=== PATIENT | male | born 1965 | race Caucasian/White ===

== ENCOUNTER 2016-10-07 11:42 | Inpatient (IN) | payer MEDICARE, OTHER ==
[~2016-10-07] VITALS: Ht 172.7 cm; Wt 94.8 kg
[~2016-10-07 11:42] MED LIST: ALBU2.5I INH; AMLO5TAB22 PO; CARV12.5 PO; CORE25TA PO; DOXY100T PO; FLUT1INH; OMPR20CCR PO; OXYC1SOL5 PO; PRED20 PO; ZOLP10TA3 PO
[2016-10-07 11:43] VITALS: BP 137/92; PULSE 78; RESP 12; TEMP 98.2; O2SAT 97
--- NOTE | 2016-10-07 12:03 | PD ---
HPI Chief Complaint: Psychiatric Symptoms Time Seen by Provider: 12:03 Travel History International Travel<30 days: No Contact w/Intl Traveler<30days: No Traveled to known affect area: No History of Present Illness HPI A 51-year-old male with history of depression, hypertension, COPD, who is legally blind, currently not taking his medication presents to the emergency department voluntarily for psychiatric evaluation. Patient contacted police after 3 stronger urges to jump in front of traffic. Patient states he has been feeling very depressed and suicidal lately. He reports cocaine and cannabinoid use. He has no other symptoms to report time. PFSH Past Medical History Hx Anticoagulant Therapy: No Anxiety: No Depression: Yes Heart Rhythm Problems: No Cancer: No Cardiovascular Problems: Yes (HTN) High Cholesterol: No Chemotherapy: No Chest Pain: No Congestive Heart Failure: No COPD: Yes Cerebrovascular Accident: No Diabetes: No Genitourinary: No Hypertension: Yes Musculoskeletal: No Neurologic: No Psychiatric: Yes Reproductive: No Respiratory: No (COPD) Sleep Apnea: Yes Past Surgical History Abdominal Surgery: No Cardiac Surgery: No Ear Surgery: No Endocrine Surgery: No Eye Surgery: No Genitourinary Surgery: No Gynecologic Surgery: No Oral Surgery: No Thoracic Surgery: No Social History Alcohol Use: Yes Tobacco Use: Yes Substance Use: Yes (cocaine) Allergies-Medications Reported Meds & Prescriptions Reported Meds & Active Scripts Active Resp: Albuterol 2.5 Mg/3 Ml Neb (Albuterol Sulfate) 2.5 Mg/3 Ml Nebu 2.5 Mg INH Q4H PRN Deltasone 20 Mg Tab (Prednisone) 20 Mg Tab 20 Mg PO Q12HR 5 Days Doxycycline Hyclate 100 mg (Doxycycline Hyclate) 100 Mg Tab 100 Mg PO BID 7 Days Oxycodone/Acetaminophen 10 mg/325 mg 1 Tab Tab 1-2 Tab PO Q4H PRN Reported Coreg 25 mg (Carvedilol) 25 Mg Tab 1 Tab PO HS Prilosec 20 Mg Cap (Omeprazole) 20 Mg Capcr 20 Mg PO DAILY Coreg 12.5 mg (Carvedilol) 12.5 Mg Tab 1 Tab PO DAILY Amlodipine Besylate 5 mg (Amlodipine Besylate) 5 Mg Tab 5 Mg PO HS Breo Ellipta 100-25 Mcg/INH (Fluticasone Furoate-Vilanterol) 1 Inh Inh Ambien 10 Mg Tab (Zolpidem Tartrate) 10 Mg Tab 10 Mg PO HS Review of Systems Except as stated in HPI: all other systems reviewed are Neg Physical Exam Narrative GENERAL: Well-nourished male patient, in no acute distress SKIN: Warm and dry. HEAD: Atraumatic. Normocephalic. EYES: Pupils equal and round. No scleral icterus. No injection or drainage. ENT: No nasal bleeding or discharge. Mucous membranes pink and moist. NECK: Trachea midline. No JVD. CARDIOVASCULAR: Regular rate and rhythm. No murmur appreciated. RESPIRATORY: No accessory muscle use. Clear to auscultation. Breath sounds equal bilaterally. GASTROINTESTINAL: Abdomen soft, non-tender, nondistended. Hepatic and splenic margins not palpable. MUSCULOSKELETAL: No obvious deformities. No clubbing. No cyanosis. No edema. NEUROLOGICAL: Awake and alert. No obvious cranial nerve deficits. Motor grossly within normal limits. Normal speech. PSYCHIATRIC: Appropriate mood and affect; insight and judgment normal. Data Data Last Documented VS Vital Signs Date Time Temp Pulse Resp B/P Pulse Ox O2 Delivery O2 Flow Rate FiO2 10/07/16 11:43 98.2 78 12 137/92 97 Room Air Orders Complete Blood Count With Diff (10/07/16 11:58) Basic Metabolic Panel (Bmp) (10/07/16 11:58) Drug Screen, Random Urine (10/07/16 11:58) Alcohol (Ethanol) (10/07/16 11:58) Psych Screen (10/07/16 11:58) Diet Regular Basic (10/07/16 Lunch) Labs Laboratory Tests Test 10/07/16 12:00 White Blood Count 9.9 TH/MM3 Red Blood Count 4.94 MIL/MM3 Hemoglobin 14.8 GM/DL Hematocrit 42.3 % Mean Corpuscular Volume 85.8 FL Mean Corpuscular Hemoglobin 30.1 PG Mean Corpuscular Hemoglobin 35.0 % Concent Red Cell Distribution Width 13.0 % Platelet Count 279 TH/MM3 Mean Platelet Volume 7.2 FL Neutrophils (%) (Auto) 60.2 % Lymphocytes (%) (Auto) 23.6 % Monocytes (%) (Auto) 5.6 % Eosinophils (%) (Auto) 9.8 % Basophils (%) (Auto) 0.8 % Neutrophils # (Auto) 6.0 TH/MM3 Lymphocytes # (Auto) 2.3 TH/MM3 Monocytes # (Auto) 0.6 TH/MM3 Eosinophils # (Auto) 1.0 TH/MM3 Basophils # (Auto) 0.1 TH/MM3 CBC Comment DIFF FINAL Differential Comment Sodium Level 135 MEQ/L Potassium Level 3.9 MEQ/L Chloride Level 102 MEQ/L Carbon Dioxide Level 28.1 MEQ/L Anion Gap 5 MEQ/L Blood Urea Nitrogen 10 MG/DL Creatinine 1.01 MG/DL Estimat Glomerular Filtration 77 ML/MIN Rate Random Glucose 108 MG/DL Calcium Level 9.1 MG/DL Urine Opiates Screen NEG Urine Barbiturates Screen NEG Urine Amphetamines Screen NEG Urine Benzodiazepines Screen NEG Urine Cocaine Screen POS Urine Cannabinoids Screen POS Ethyl Alcohol Level LESS THAN 3 MG/DL MDM Medical Decision Making Medical Screen Exam Complete: Yes Emergency Medical Condition: Yes Medical Record Reviewed: Yes Differential Diagnosis Mood disorder versus personality disorder versus adjustment reaction disorder Narrative Course 51-year-old male presents to emergency department for evaluation, voluntarily for depression. Patient appears without distress. Vital signs are stable. CBC and BMP are without acute concern. Toxicology is positive for cannabinoids and cocaine. Patient is medically cleared to undergo psychiatric screening for further evaluation and disposition. Mental health screening discussed with the patient. Psychiatric screen ordered. Diagnosis Primary Impression: Depression Qualified Code: F32.9 - Depression, unspecified depression type Additional Impression: Substance abuse Condition: Stable Amie Martinez Oct 07, 2016 12:03
[2016-10-07 12:15] LABS: BASOPHIL # 0.1 TH/MM3 (0-0.2); BASOPHIL % 0.8 % (0.0-2.0); EOSINOPHIL % 9.8 % (0.0-4.0); HEMATOCRIT 42.3 % (39.0-51.0); HEMO FLAGS DIFF FINAL; LYMPH % 23.6 % (9.0-44.0); LYMPHOCYTE # 2.3 TH/MM3 (1.0-4.8); MEAN CELL VOLUME 85.8 FL (80.0-100.0); MEAN CORPUSCULAR HEMOGLOBIN 30.1 PG (27.0-34.0); MONO % 5.6 % (0.0-8.0); NEUT % 60.2 % (16.0-70.0); PLATELET COUNT 279 TH/MM3 (150-450); RED BLOOD COUNT 4.94 MIL/MM3 (4.50-5.90); WHITE BLOOD COUNT 9.9 TH/MM3 (4.0-11.0)
[2016-10-07 12:24] LABS: AMPHETAMINE, URINE NEG (NEG); BARBITURATES, URINE NEG (NEG); COCAINE, URINE POS (NEG)
[2016-10-07 12:29] LABS: ANION GAP 5 MEQ/L (5-15); BICARBONATE 28.1 MEQ/L (21.0-32.0); BLOOD UREA NITROGEN 10 MG/DL (7-18); CHLORIDE 102 MEQ/L (98-107); GLOMERULAR FILTRATION RATE 77 ML/MIN (>89); POTASSIUM 3.9 MEQ/L (3.5-5.1); SODIUM (NA) 135 MEQ/L (136-145)
[2016-10-07 14:20] VITALS: BP 130/81; PULSE 76; RESP 16; TEMP 97.8; O2SAT 99
[2016-10-07] MEDS ORDERED: AMLO10TA2 PO (14:58)
[2016-10-07] MEDS ORDERED: ALBU0.08 NEB (14:58)
[2016-10-07] MEDS ORDERED: PERC10TA27 PO (15:02)
[2016-10-07] MEDS ORDERED: CARV25TA PO (15:02)
[2016-10-07] MEDS ORDERED: ZOLP10TA3 PO (15:02)
[2016-10-07] MEDS ORDERED: CELE200C PO (15:02)
[2016-10-07] MEDS ORDERED: FLUT1INH INH (15:02)
[2016-10-07] MEDS ORDERED: OMEP20TA PO (15:02)
[2016-10-07] MEDS ORDERED: SOMA350T PO (15:02)
[2016-10-07] MEDS ORDERED: VENTAER INH (15:02)
[2016-10-07] MEDS ORDERED: CARV12.52 PO (15:02)
[2016-10-07 18:56] VITALS: BP 135/96; PULSE 83; RESP 18; TEMP 98.2; O2SAT 98
[2016-10-07 22:21] VITALS: BP 129/79; PULSE 74; RESP 18; O2SAT 97
[2016-10-07] MEDS ORDERED: CARVEDILOL 12.5 MG TAB PO ONE (22:30)
[2016-10-07] MEDS ORDERED: ACETAMINOPHEN 325 MG TAB PO PRN (22:45)
[2016-10-07] MEDS ORDERED: MAGNESIUM HYDROXIDE SUSP 30 ML CUP PO PRN (22:45)
[2016-10-07] MEDS ORDERED: ALUMINUM/MAGNESIUM/SIMETH 30 ML CUP PO PRN (22:45)
[2016-10-07] MEDS ORDERED: BENZTROPINE MESYLATE 2 MG/2 ML VIAL IM PRN (22:45)
[2016-10-07] MEDS ORDERED: hydrOXYzine HCL 50 MG TAB PO PRN (22:45)
[2016-10-07] MEDS ORDERED: ALBUTEROL SULFATE 90 MCG/ACT HFA 8 GM INHALER INH PRN (22:45)
[2016-10-07] MEDS ORDERED: BENZTROPINE MESYLATE 1 MG TAB PO PRN (22:45)
[2016-10-08 02:26] VITALS: BP 137/99; PULSE 83; RESP 18; TEMP 97.7; O2SAT 99
[2016-10-08 06:56] LABS: ALKALINE PHOSPHATASE 62 U/L (45-117); ALT (GPT) 21 U/L (12-78); ANION GAP 9 MEQ/L (5-15); AST (GOT) 6 U/L (15-37); BICARBONATE 25.2 MEQ/L (21.0-32.0); BLOOD UREA NITROGEN 13 MG/DL (7-18); CHLORIDE 102 MEQ/L (98-107); GLOMERULAR FILTRATION RATE 81 ML/MIN (>89); HDL CHOLESTEROL 48.7 MG/DL (40.0-60.0); LDL CHOLESTEROL 89 MG/DL (0-99); POTASSIUM 3.5 MEQ/L (3.5-5.1); SODIUM (NA) 136 MEQ/L (136-145); TOTAL BILIRUBIN ADULT 0.3 MG/DL (0.2-1.0)
[2016-10-08] MEDS: PANTOPRAZOLE SOD 20 MG DELAYED RELEASE TAB PO SCH (08:50)
[2016-10-08] MEDS: CARVEDILOL 12.5 MG TAB PO SCH ×3 (09:00→20:31)
[2016-10-08] MEDS: REMOVE OLD PATCH T-DERMAL SCH (09:00)
[2016-10-08] MEDS: NICOTINE 21 MG/24 HR PATCH T-DERMAL SCH (09:00)
[2016-10-08] MEDS: FLUTICASONE 100 MCG/VILANTEROL 25 MCG INHALER INH SCH (09:00)
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
[2016-10-08 14:12] LABS: HEMOGLOBIN A1a 1.5 %; HEMOGLOBIN A1b 1.6 %; HEMOGLOBIN Ao 85.1 %; HEMOGLOBIN LA1C 1.9 %; HEMOGLOBIN P3 3.9 %
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
[2016-10-08 19:45] VITALS: BP 114/70; PULSE 100; RESP 18; TEMP 98.2; O2SAT 99
[2016-10-08] MEDS: DULoxetine HCl DR 30 MG CAP PO SCH (20:30)
[2016-10-08] MEDS: CELECOXIB 200 MG CAP PO SCH (22:05)
[2016-10-08] MEDS: MUPIROCIN 2% OINT 22 GM TUBE TOPICAL SCH (22:05)
[2016-10-09 05:38] VITALS: BP 118/62; PULSE 79; RESP 17; TEMP 98.3; O2SAT 96
[2016-10-09] MEDS: REMOVE OLD PATCH T-DERMAL SCH (09:00)
[2016-10-09] MEDS: NICOTINE 21 MG/24 HR PATCH T-DERMAL SCH (09:00)
[2016-10-09] MEDS: FLUTICASONE 100 MCG/VILANTEROL 25 MCG INHALER INH SCH ×2 (09:00→21:00)
[2016-10-09] MEDS: CELECOXIB 200 MG CAP PO SCH ×2 (09:07→20:29)
[2016-10-09] MEDS: PANTOPRAZOLE SOD 20 MG DELAYED RELEASE TAB PO SCH (09:08)
[2016-10-09] MEDS: DULoxetine HCl DR 30 MG CAP PO SCH ×2 (09:08→20:29)
[2016-10-09] MEDS: MUPIROCIN 2% OINT 22 GM TUBE TOPICAL SCH ×2 (09:24→21:00)
[2016-10-09] MEDS ORDERED: PNEUMOCOCCAL POLYVALENT INJ 25 MCG/0.5 ML SYR IM ONE (10:00)
[2016-10-09] MEDS ORDERED: INFLUENZA VIRUS VACCINE (QUADRIVALENT) 0.5 ML SYR IM ONE (10:00)
--- NOTE | 2016-10-09 12:14 | HHI.PYPN ---
Subjective Remarks Patient seen and examined. Chart reviewed. Case discussed with nursing staff. On my examination today, the patient continues to angle to maximize his inpatient stay, saying that he spoke with the sober living he would like to go to and saying that they recommended he stay inpatient for "a week or two" at least. He says he is feeling "debbie down; I just wanna sleep" today. Denies SI. Feels like he has lost everything. Denies side effects from medications. Review of Systems Other No new physical complaints today. Patient has been evaluated by hospitalist for previous complaints. Objective Alert: Yes [place]: Person, Place, Date Mood: Calm, Depressed Affect: Blunted Memory Intact: Comment (Intact) Hallucinations: Other (No AVH) Delusions: No Delusion Type: Other (No delusions) Suicidal: Ideation (Denies SI) Homicidal: Ideation (No HI) Insight/Judgement Fair Remarks No abnormal motor movements noted. Labs Date/Time Procedure Status Source Growth 10/08/16 18:00 Gram Stain - Final Resulted Wound Neck 10/08/16 18:00 Wound Culture Resulted Wound Neck Pending Labs reviewed. Vitals/IOs Vital Signs Date Time Temp Pulse Resp B/P Pulse Ox O2 Delivery O2 Flow Rate FiO2 10/09/16 05:38 98.3 79 17 118/62 96 10/07/16 22:21 Room Air Assessment & Plan Problem List: (1) Drug-induced mood disorder ICD Code: F19.94 (2) Cocaine abuse ICD Code: F14.10 (3) Cannabis abuse ICD Code: F12.10 Assessment & Plan Continue Cymbalta as ordered. We will plan to consider titrating in a day or 2. Continue other medications and care as ordered. Hospitalist consult noted and appreciated. Wound care consult placed. Justification for Cont. Inpt. Risk for decompensation Discharge Planning Pending psychiatric stabilization Request HC Surrog/Guard Advoc?: No Mk Villagomez MD Oct 09, 2016 12:14
[2016-10-09 18:50] VITALS: BP 121/75; PULSE 74; RESP 18; TEMP 97.8; O2SAT 99
[2016-10-09] MEDS: CARVEDILOL 12.5 MG TAB PO SCH (20:29)
[2016-10-09] MEDS: diphenhydrAMINE HCL 50 MG CAP PO PRN (21:32)
[2016-10-10 06:05] VITALS: BP 124/86; PULSE 75; RESP 18; TEMP 97.1
[2016-10-10] MEDS: CELECOXIB 200 MG CAP PO SCH ×2 (08:57→21:01)
[2016-10-10] MEDS: CARVEDILOL 12.5 MG TAB PO SCH ×2 (08:57→21:01)
[2016-10-10] MEDS: DULoxetine HCl DR 30 MG CAP PO SCH ×2 (08:57→21:00)
[2016-10-10] MEDS: REMOVE OLD PATCH T-DERMAL SCH (08:57)
[2016-10-10] MEDS: PANTOPRAZOLE SOD 20 MG DELAYED RELEASE TAB PO SCH (08:57)
[2016-10-10] MEDS: NICOTINE 21 MG/24 HR PATCH T-DERMAL SCH (08:57)
[2016-10-10] MEDS: MUPIROCIN 2% OINT 22 GM TUBE TOPICAL SCH ×2 (09:14→21:04)
--- NOTE | 2016-10-10 10:31 | HHI.PYPN ---
Subjective Remarks Patient seen and examined with counselor. Chart reviewed. Case discussed in treatment team. Case discussed with nursing staff area and on my examination today, patient remains a little morose and sullen. He complains of some ongoing depressive symptomatology. Sleep disturbance persists. No SI voiced. We discuss titrating his Cymbalta, and he is agreeable to this. Denies side effects from medications. Review of Systems Other No new physical complaints. Objective Alert: Yes [place]: Person, Place, Date Mood: Depressed Affect: Blunted Memory Intact: Comment (remains intact on clinical exam) Hallucinations: Other (none) Delusions: No Delusion Type: Other (no delusional material) Suicidal: Ideation (no SI) Homicidal: Ideation (no HI) Insight/Judgement Fair Remarks Thought process linear. Speech a little slow with increased speech latency. No abnormal motor movements noted. Labs Test 10/09/16 15:35 Nasal Screen MRSA (PCR) POSITIVE Date/Time Procedure Status Source Growth 10/08/16 18:00 Gram Stain - Final Resulted Wound Neck 10/08/16 18:00 Wound Culture - Preliminary Resulted S. Aureus Mrsa Vitals/IOs Vital Signs Date Time Temp Pulse Resp B/P Pulse Ox O2 Delivery O2 Flow Rate FiO2 10/10/16 06:05 97.1 75 18 124/86 10/09/16 18:50 99 10/07/16 22:21 Room Air Assessment & Plan Problem List: (1) Drug-induced mood disorder ICD Code: F19.94 (2) Cocaine abuse ICD Code: F14.10 (3) Cannabis abuse ICD Code: F12.10 Assessment & Plan Titrate Cymbalta to 60 mg daily and 30 mg at bedtime. Wound care nurse input noted and appreciated. Positive MRSA nasal swab noted and patient is now on modified contact precautions per nursing staff. I will ask the hospitalist to return to reevaluate the patient given positive neck lesion culture for MRSA. Continue other medications and care as ordered. Justification for Cont. Inpt. Medication adjustments. Risk for decompensation. Discharge Planning Sober living, possibly beginning or middle of next week Request HC Surrog/Guard Advoc?: No Mk Villagomez MD Oct 10, 2016 10:30
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
[2016-10-10 19:21] VITALS: BP 118/91; PULSE 86; RESP 18; TEMP 97.9; O2SAT 96
[2016-10-10] MEDS: FLUTICASONE 100 MCG/VILANTEROL 25 MCG INHALER INH SCH (21:00)
[2016-10-11] MEDS: MUPIROCIN 2% OINT 22 GM TUBE TOPICAL SCH ×3 (06:00→20:45)
[2016-10-11 06:23] VITALS: BP 123/88; PULSE 68; RESP 18; TEMP 97.9
[2016-10-11] MEDS: REMOVE OLD PATCH T-DERMAL SCH (09:00)
[2016-10-11] MEDS: NICOTINE 21 MG/24 HR PATCH T-DERMAL SCH (09:00)
[2016-10-11] MEDS: DULoxetine HCl DR 60 MG CAP PO SCH (09:27)
[2016-10-11] MEDS: CARVEDILOL 12.5 MG TAB PO SCH ×2 (09:27→20:34)
[2016-10-11] MEDS: PANTOPRAZOLE SOD 20 MG DELAYED RELEASE TAB PO SCH (09:27)
[2016-10-11] MEDS: CELECOXIB 200 MG CAP PO SCH ×2 (09:28→20:34)
--- NOTE | 2016-10-11 10:45 | HHI.PYPN ---
Subjective Remarks Patient seen and examined. Chart reviewed. Case discussed with nursing staff who reports patient has been out socializing on the unit. On my examination today, the patient remains somewhat sullen and low energy. He says that he has been trying to get out for some groups but feels "scared, stressed, bummed out. " He denies any suicidal or homicidal ideation. Denies side effects from medications. Says that he has been calling regarding sober livings. Review of Systems Other No physical complaints today Objective Alert: Yes [place]: Person, Place, Date Mood: Depressed Affect: Blunted Memory Intact: Comment (intact) Hallucinations: Other (no AVH) Delusions: No Delusion Type: Other (no delusional material) Suicidal: Ideation (denies SI) Homicidal: Ideation (denies HI) Insight/Judgement Fair Remarks Thought process linear Labs Date/Time Procedure Status Source Growth 10/08/16 18:00 Gram Stain - Final Complete Wound Neck 10/08/16 18:00 Wound Culture - Final Complete S. Aureus Mrsa Labs reviewed Vitals/IOs Vital Signs Date Time Temp Pulse Resp B/P Pulse Ox O2 Delivery O2 Flow Rate FiO2 10/11/16 06:23 97.9 68 18 123/88 10/10/16 19:21 96 10/07/16 22:21 Room Air Assessment & Plan Problem List: (1) Drug-induced mood disorder ICD Code: F19.94 (2) Cocaine abuse ICD Code: F14.10 (3) Cannabis abuse ICD Code: F12.10 Assessment & Plan Continue Cymbalta as ordered. Continue other medications and care as ordered. Appreciate hospitalist [employer] consultant input. Justification for Cont. Inpt. Risk for decompensation Discharge Planning Plan to transition into a sober living no later than end of next week Request HC Surrog/Guard Advoc?: No Mk Villagomez MD Oct 11, 2016 10:45
[2016-10-11 19:50] VITALS: BP 123/75; PULSE 75; RESP 17; TEMP 97.6; O2SAT 99
[2016-10-11] MEDS: DULoxetine HCl DR 30 MG CAP PO SCH (20:34)
[2016-10-11] MEDS: diphenhydrAMINE HCL 50 MG CAP PO PRN (20:35)
[2016-10-11] MEDS: FLUTICASONE 100 MCG/VILANTEROL 25 MCG INHALER INH SCH (20:45)
[2016-10-12] MEDS: MUPIROCIN 2% OINT 22 GM TUBE TOPICAL SCH ×3 (05:17→22:00)
[2016-10-12 05:44] VITALS: BP 135/86; PULSE 75; RESP 18; TEMP 97.9
[2016-10-12] MEDS: PANTOPRAZOLE SOD 20 MG DELAYED RELEASE TAB PO SCH (08:57)
[2016-10-12] MEDS: CARVEDILOL 12.5 MG TAB PO SCH ×2 (08:57→21:13)
[2016-10-12] MEDS: DULoxetine HCl DR 60 MG CAP PO SCH (08:57)
[2016-10-12] MEDS: CELECOXIB 200 MG CAP PO SCH ×2 (08:57→21:13)
[2016-10-12] MEDS: NICOTINE 21 MG/24 HR PATCH T-DERMAL SCH (09:00)
[2016-10-12] MEDS: REMOVE OLD PATCH T-DERMAL SCH (09:00)
--- NOTE | 2016-10-12 14:44 | HHI.PYPN ---
Subjective Remarks Patient was seen and case discussed with nursing. Patient is looking forward to discharge to [facility] next week. Seen reading a book. His mood remains depressed and hopeless. He denies suicidal ideations thought or plan. Objective Alert: Yes [place]: Person, Place, Date Mood: Depressed Affect: Blunted Memory Intact: Comment (intact) Hallucinations: Other (no AVH) Delusions: No Delusion Type: Other (no delusional material) Suicidal: Ideation (denies SI) Homicidal: Ideation (denies HI) Insight/Judgement Poor Labs Date/Time Procedure Status Source Growth 10/08/16 18:00 Gram Stain - Final Complete Wound Neck 10/08/16 18:00 Wound Culture - Final Complete S. Aureus Mrsa Vitals/IOs Vital Signs Date Time Temp Pulse Resp B/P Pulse Ox O2 Delivery O2 Flow Rate FiO2 10/12/16 05:44 97.9 75 18 135/86 10/11/16 19:50 99 Assessment & Plan Problem List: (1) Drug-induced mood disorder ICD Code: F19.94 (2) Cocaine abuse ICD Code: F14.10 (3) Cannabis abuse ICD Code: F12.10 Assessment & Plan Continue current treatment plan Justification for Cont. Inpt. Patient would decompensate in a less restrictive setting Request HC Surrog/Guard Advoc?: No Clayton Garcia DO Oct 12, 2016 14:44
[2016-10-12 19:11] VITALS: BP 114/79; PULSE 74; RESP 18; O2SAT 96
[2016-10-12] MEDS: FLUTICASONE 100 MCG/VILANTEROL 25 MCG INHALER INH SCH (21:12)
[2016-10-12] MEDS: DULoxetine HCl DR 30 MG CAP PO SCH (21:13)
[2016-10-12] MEDS: diphenhydrAMINE HCL 50 MG CAP PO PRN (22:47)
[2016-10-13 05:09] VITALS: BP 145/67; PULSE 78; RESP 18; O2SAT 98
[2016-10-13] MEDS: MUPIROCIN 2% OINT 22 GM TUBE TOPICAL SCH ×3 (06:13→21:33)
[2016-10-13] MEDS: NICOTINE 21 MG/24 HR PATCH T-DERMAL SCH (09:00)
[2016-10-13] MEDS: REMOVE OLD PATCH T-DERMAL SCH (09:00)
[2016-10-13] MEDS: DULoxetine HCl DR 60 MG CAP PO SCH (09:21)
[2016-10-13] MEDS: CARVEDILOL 12.5 MG TAB PO SCH ×2 (09:21→20:53)
[2016-10-13] MEDS: PANTOPRAZOLE SOD 20 MG DELAYED RELEASE TAB PO SCH (09:21)
[2016-10-13] MEDS: CELECOXIB 200 MG CAP PO SCH ×2 (09:21→20:53)
--- NOTE | 2016-10-13 14:02 | HHI.PYPN ---
Subjective Remarks Patient was seen and case discussed with nursing. She is pleasant and cooperative with exam. Mood is "okay." Fleeting suicidal thoughts. Patient is concerned about his neck lesion and he was evaluated by the medical team. According to their notes they are where it is MRSA and is being treated with topical antibiotics. There is no fever or signs of systemic infection. We'll check with nursing the patient is getting wound care Objective Alert: Yes [place]: Person, Place, Date Mood: Depressed Affect: Blunted Memory Intact: Comment (intact) Hallucinations: Other (no AVH) Delusions: No Delusion Type: Other (no delusional material) Suicidal: Ideation (denies SI) Homicidal: Ideation (denies HI) Insight/Judgement Poor Labs Date/Time Procedure Status Source Growth 10/08/16 18:00 Gram Stain - Final Complete Wound Neck 10/08/16 18:00 Wound Culture - Final Complete S. Aureus Mrsa Vitals/IOs Vital Signs Date Time Temp Pulse Resp B/P Pulse Ox O2 Delivery O2 Flow Rate FiO2 10/13/16 05:09 78 18 145/67 98 10/12/16 05:44 97.9 Assessment & Plan Problem List: (1) Drug-induced mood disorder ICD Code: F19.94 (2) Cocaine abuse ICD Code: F14.10 (3) Cannabis abuse ICD Code: F12.10 Assessment & Plan See history of present illness Justification for Cont. Inpt. Patient would decompensate in a less restrictive setting Request HC Surrog/Guard Advoc?: No Clayton Garcia DO Oct 13, 2016 14:02
[2016-10-13 18:54] VITALS: BP 122/84; PULSE 86; RESP 18; O2SAT 95
[2016-10-13 20:00] VITALS: BP 122/78; PULSE 74; RESP 18; TEMP 97.2; O2SAT 98
[2016-10-13] MEDS: DULoxetine HCl DR 30 MG CAP PO SCH (20:53)
[2016-10-13] MEDS: diphenhydrAMINE HCL 50 MG CAP PO PRN (20:56)
[2016-10-13] MEDS: FLUTICASONE 100 MCG/VILANTEROL 25 MCG INHALER INH SCH (21:00)
[2016-10-14] MEDS: MUPIROCIN 2% OINT 22 GM TUBE TOPICAL SCH ×3 (06:00→22:00)
[2016-10-14] MEDS: CARVEDILOL 12.5 MG TAB PO SCH ×2 (08:45→21:25)
[2016-10-14] MEDS: DULoxetine HCl DR 60 MG CAP PO SCH (08:45)
[2016-10-14] MEDS: NICOTINE 21 MG/24 HR PATCH T-DERMAL SCH (08:45)
[2016-10-14] MEDS: PANTOPRAZOLE SOD 20 MG DELAYED RELEASE TAB PO SCH (08:45)
[2016-10-14] MEDS: CELECOXIB 200 MG CAP PO SCH ×2 (08:45→21:25)
[2016-10-14] MEDS: REMOVE OLD PATCH T-DERMAL SCH (09:00)
--- NOTE | 2016-10-14 15:14 | HHI.PYPN ---
Subjective Remarks patient seen and examined. Chart reviewed. Case discussed with nursing staff. On my examination today, patient reports mood is starting to improve somewhat. Reports difficulties with sleep onset and also poor energy, but he is not receiving his CPAP therapy for CLARY while he is on the inpatient psychiatric unit because of safety concerns, not so much from the patient but from peers. No suicidal thoughts voiced today. Does complain of some dry mouth from the Cymbalta. Says he has spoken with [facility] and they will have a bed for him Friday. Requests Ambien for sleep, says that he normally gets the 10 mg dose but would be willing to try the 5 mg dose. I explained that I Will prescribe this for him in house but not on discharge, and he is in agreement with this. Review of Systems Other No physical complaints today Objective Alert: Yes [place]: Person, Place, Date Mood: Depressed Affect: Blunted Memory Intact: Comment (remains intact) Hallucinations: Other (none) Delusions: No Delusion Type: Other (no delusional material) Suicidal: Ideation (no SI) Homicidal: Ideation (no HI) Insight/Judgement Fair Remarks No motoric abnormalities noted Labs Labs reviewed. No new labs. Vitals/IOs Vital Signs Date Time Temp Pulse Resp B/P Pulse Ox O2 Delivery O2 Flow Rate FiO2 10/13/16 20:00 97.2 74 18 122/78 98 Assessment & Plan Problem List: (1) Drug-induced mood disorder ICD Code: F19.94 (2) Cocaine abuse ICD Code: F14.10 (3) Cannabis abuse ICD Code: F12.10 Assessment & Plan Continue Cymbalta as ordered. Replace Benadryl with Ambien 5 mg at bedtime. I will order Biotene mouthwash for patient's dry mouth. Continue other medications and care as ordered. Justification for Cont. Inpt. Risk for decompensation Discharge Planning Sober living Request HC Surrog/Guard Advoc?: No Mk Villagomez MD Oct 14, 2016 15:14
[2016-10-14 19:15] VITALS: BP 126/82; PULSE 76; RESP 17; TEMP 98; O2SAT 100
[2016-10-14] MEDS: FLUTICASONE 100 MCG/VILANTEROL 25 MCG INHALER INH SCH (21:00)
[2016-10-14] MEDS: DULoxetine HCl DR 30 MG CAP PO SCH (21:25)
[2016-10-14] MEDS: ZOLPIDEM TARTRATE 5 MG TAB PO PRN (21:35)
[2016-10-15 05:28] VITALS: BP 108/75; PULSE 96; RESP 16; TEMP 97.8; O2SAT 96
[2016-10-15] MEDS: MUPIROCIN 2% OINT 22 GM TUBE TOPICAL SCH ×3 (06:00→22:00)
[2016-10-15] MEDS: DULoxetine HCl DR 60 MG CAP PO SCH (08:50)
[2016-10-15] MEDS: CELECOXIB 200 MG CAP PO SCH ×2 (08:50→21:00)
[2016-10-15] MEDS: PANTOPRAZOLE SOD 20 MG DELAYED RELEASE TAB PO SCH (08:50)
[2016-10-15] MEDS: NICOTINE 21 MG/24 HR PATCH T-DERMAL SCH (09:00)
[2016-10-15] MEDS: REMOVE OLD PATCH T-DERMAL SCH (09:00)
[2016-10-15] MEDS: CARVEDILOL 12.5 MG TAB PO SCH ×2 (09:00→20:20)
--- NOTE | 2016-10-15 11:55 | HHI.PYPN ---
Subjective Remarks Patient seen and examined with counselor. Chart reviewed. Case discussed in treatment team. On my examination today, the patient reports that his Ambien worked well last night and he slept well. Mood is lifting somewhat. No SI or HI. Denies side effects from medications. Review of Systems Other No new physical complaints today. Objective Alert: Yes [place]: Person (O x 3) Mood: Depressed (improving) Affect: Blunted Memory Intact: Comment (Intact) Hallucinations: Other (No AVH) Delusions: No Delusion Type: Other (No evident delusions) Suicidal: Ideation (No SI) Homicidal: Ideation (No HI) Insight/Judgement Fair Remarks TP linear Labs Labs reviewed. No new labs. Vitals/IOs Vital Signs Date Time Temp Pulse Resp B/P Pulse Ox O2 Delivery O2 Flow Rate FiO2 10/15/16 05:28 97.8 96 16 108/75 96 Assessment & Plan Problem List: (1) Drug-induced mood disorder ICD Code: F19.94 (2) Cocaine abuse ICD Code: F14.10 (3) Cannabis abuse ICD Code: F12.10 Assessment & Plan Continue Cymbalta as ordered. We discussed titrating the dose prophylactically but the patient prefers continuing at the current dose for now. Continue other medications and care as ordered. Justification for Cont. Inpt. Risk for decompensation Discharge Planning Anticipate discharged to sober living, no later than the end of the week Request HC Surrog/Guard Advoc?: No Mk Villagomez MD Oct 15, 2016 11:55
[2016-10-15 19:58] VITALS: BP 145/96; PULSE 96; RESP 18; TEMP 97.8
[2016-10-15] MEDS: ZOLPIDEM TARTRATE 5 MG TAB PO PRN (20:21)
[2016-10-15] MEDS: DULoxetine HCl DR 30 MG CAP PO SCH (20:21)
[2016-10-15] MEDS: FLUTICASONE 100 MCG/VILANTEROL 25 MCG INHALER INH SCH (21:00)
[2016-10-16 05:57] VITALS: BP 114/63; PULSE 83; RESP 18; TEMP 97.4; O2SAT 97
[2016-10-16] MEDS: MUPIROCIN 2% OINT 22 GM TUBE TOPICAL SCH ×3 (06:00→22:00)
[2016-10-16] MEDS: REMOVE OLD PATCH T-DERMAL SCH (09:00)
[2016-10-16] MEDS: NICOTINE 21 MG/24 HR PATCH T-DERMAL SCH (09:00)
[2016-10-16] MEDS: CARVEDILOL 12.5 MG TAB PO SCH ×2 (09:44→21:02)
[2016-10-16] MEDS: DULoxetine HCl DR 60 MG CAP PO SCH (09:44)
[2016-10-16] MEDS: CELECOXIB 200 MG CAP PO SCH ×2 (09:44→21:01)
[2016-10-16] MEDS: PANTOPRAZOLE SOD 20 MG DELAYED RELEASE TAB PO SCH (09:44)
--- NOTE | 2016-10-16 15:02 | HHI.PYPN ---
Subjective Remarks Patient seen and examined with counselor. Chart reviewed. Case discussed with nursing staff who reports no behavioral problems. On my examination today, the patient feels improved from a psychiatric standpoint. He says that he is also to go to [facility] [employer] on Friday. He was pleased to have been seen by the hospitalist qm consultant. No side effects from medications. Review of Systems Other No new somatic complaints today Objective Alert: Yes [place]: Person, Place (at least) Mood: Calm (not particularly depressed) Affect: Blunted Memory Intact: Comment (Intact) Hallucinations: Other (No AVH) Delusions: No Delusion Type: Other (no delusional material) Suicidal: Ideation (No SI) Homicidal: Ideation (No HI) Insight/Judgement Fair Remarks Thought process linear Labs Labs reviewed. No new labs. Vitals/IOs Vital Signs Date Time Temp Pulse Resp B/P Pulse Ox O2 Delivery O2 Flow Rate FiO2 10/16/16 05:57 97.4 83 18 114/63 97 Assessment & Plan Problem List: (1) Drug-induced mood disorder ICD Code: F19.94 (2) Cocaine abuse ICD Code: F14.10 (3) Cannabis abuse ICD Code: F12.10 Assessment & Plan Continue current psychotropics as ordered. Continue other medications and care as ordered. I have requested the hospitalist returned medically clear the patient prior to discharge. Justification for Cont. Inpt. Risk for decompensation Discharge Planning To sober living, Friday Request HC Surrog/Guard Advoc?: No Mk Villagomez MD Oct 16, 2016 15:02
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
[2016-10-16 18:00] VITALS: BP 137/92; PULSE 79; RESP 18; TEMP 97.5; O2SAT 97
[2016-10-16 20:24] VITALS: BP 137/92; PULSE 79; RESP 18; TEMP 97.5
[2016-10-16] MEDS: FLUTICASONE 100 MCG/VILANTEROL 25 MCG INHALER INH SCH (21:00)
[2016-10-16] MEDS: DULoxetine HCl DR 30 MG CAP PO SCH (21:01)
[2016-10-16] MEDS: ZOLPIDEM TARTRATE 5 MG TAB PO PRN (21:02)
[2016-10-17] MEDS: MUPIROCIN 2% OINT 22 GM TUBE TOPICAL SCH ×3 (05:26→21:11)
[2016-10-17 06:14] VITALS: BP 125/77; PULSE 79; RESP 16; TEMP 98.3
[2016-10-17] MEDS: REMOVE OLD PATCH T-DERMAL SCH (09:00)
[2016-10-17] MEDS: NICOTINE 21 MG/24 HR PATCH T-DERMAL SCH (09:00)
[2016-10-17] MEDS: CELECOXIB 200 MG CAP PO SCH ×2 (09:54→21:10)
[2016-10-17] MEDS: DULoxetine HCl DR 60 MG CAP PO SCH (09:55)
[2016-10-17] MEDS: PANTOPRAZOLE SOD 20 MG DELAYED RELEASE TAB PO SCH (09:55)
[2016-10-17] MEDS: CARVEDILOL 12.5 MG TAB PO SCH ×2 (09:55→21:09)
[2016-10-17] MEDS ORDERED: MUPI2OIN TOPICAL (14:03)
--- NOTE | 2016-10-17 16:02 | HHI.PYPN ---
Subjective Remarks Patient seen and examined. Chart reviewed. Case discussed with nursing staff. Patient reports that he is in fair spirits today. His mood is significantly improved versus admission. No ongoing suicidal or homicidal ideation. He is pleased with the counselor has reportedly written him a notes that he may have his dog at the sober living to which she is going. Denies side effects from medications. No other issues noted. Review of Systems Other No new somatic complaints today Objective Alert: Yes [place]: Person (O x 3) Mood: Calm Affect: Blunted Memory Intact: Comment (Intact) Hallucinations: Other (none) Delusions: No Delusion Type: Other (no delusions) Suicidal: Ideation (No SI) Homicidal: Ideation (No HI) Insight/Judgement Fair Remarks Thought process linear Labs Labs reviewed. No new labs. Vitals/IOs Vital Signs Date Time Temp Pulse Resp B/P Pulse Ox O2 Delivery O2 Flow Rate FiO2 10/17/16 06:14 98.3 79 16 125/77 10/16/16 18:00 97 Assessment & Plan Problem List: (1) Drug-induced mood disorder ICD Code: F19.94 (2) Cocaine abuse ICD Code: F14.10 (3) Cannabis abuse ICD Code: F12.10 Assessment & Plan Continue current psychotropics as ordered. Continue other medications and care as ordered. Hospitalist discharge recommendations noted and appreciated. Justification for Cont. Inpt. Discharge planning Discharge Planning Discharge tomorrow to sober living Request HC Surrog/Guard Advoc?: No Mk Villagomez MD Oct 17, 2016 16:02
[2016-10-17 18:00] VITALS: BP 137/89; PULSE 81; RESP 16; TEMP 97; O2SAT 100
[2016-10-17] MEDS: FLUTICASONE 100 MCG/VILANTEROL 25 MCG INHALER INH SCH (21:09)
[2016-10-17] MEDS: DULoxetine HCl DR 30 MG CAP PO SCH (21:10)
[2016-10-17] MEDS: ZOLPIDEM TARTRATE 5 MG TAB PO PRN (21:10)
[2016-10-18] MEDS: MUPIROCIN 2% OINT 22 GM TUBE TOPICAL SCH ×2 (05:13→14:00)
[2016-10-18 05:57] VITALS: BP 122/82; PULSE 85; RESP 16; TEMP 98
[2016-10-18] MEDS: REMOVE OLD PATCH T-DERMAL SCH (09:00)
[2016-10-18] MEDS: NICOTINE 21 MG/24 HR PATCH T-DERMAL SCH (09:00)
[2016-10-18] MEDS: CARVEDILOL 12.5 MG TAB PO SCH (09:38)
[2016-10-18] MEDS: CELECOXIB 200 MG CAP PO SCH (09:38)
[2016-10-18] MEDS: PANTOPRAZOLE SOD 20 MG DELAYED RELEASE TAB PO SCH (09:38)
[2016-10-18] MEDS: DULoxetine HCl DR 60 MG CAP PO SCH (09:38)
[2016-10-18] MEDS ORDERED: DULO1CAP2 PO (13:59)
--- NOTE | 2016-10-18 13:59 | HHI.DS ---
Psychiatry Discharge Summary Inpatient Psychiatric care?: Yes Advance Directive: No Reason Not Provided: "never bothered with it" Mental Health AdvanceDirective: No Health Care Proxy: No Admission Admission Date Oct 07, 2016 at 22:31 Admission Diagnosis: (1) Drug-induced mood disorder ICD Code: F19.94 (2) Cocaine abuse ICD Code: F14.10 (3) Cannabis abuse ICD Code: F12.10 Brief History Mr. Fernandez is a 51-year-old male with a reported history of depressive illness as well as substance use issues who presented to the ED with complaints of depression and suicidal ideation. Reviewing the electronic medical record, I see no prior psychiatric contact within our system. Patient's toxicology was positive for cocaine and cannabinoids on presentation here. Patient seen and examined with nursePortillo. Chart reviewed. Case discussed with nursing staff. On my examination today, the patient has a somewhat dramatic, supercilious and demanding demeanor. For example, he has a small skin nodule on his left neck of several months duration and he says "you're going to want to get someone to look at that." When I offer to consult the hospitalist, he sniffs and deprecates the idea before finally accepting. Psychiatrically, he says that he is suffering from "overwhelming depression, why bother?" He says that he feels "shame in almost everything I've done in my life. The carpet has been yanked out from under me. Once I got his by the care it set off a whole avalanche of things. Yesterday, I had a moment of clarity: I need to get off of this nonsense." His hope is to get into a sober living setting. He continues to verbalize some vague suicidal ideation outpatient but denies any suicidal ideation, intent or plan while on the inpatient psychiatric unit on direct questioning. He says that he stepped in front of a car yesterday to try to end his life but it swerved out of his way. He then called the police who reportedly brought him to the ED. He denies any audiovisual hallucinations, and I can elicit no delusional beliefs. No hypomanic or manic symptoms. The remainder of the psychiatric ROS is negative. Past psychiatric history: Patient reports that he has had a diagnosis of depression since he was a teenager. He is not presently under the care of a psychiatrist. He feels that Cymbalta at a dose of 30 mg twice a day has worked the best for him. He is previously tried a few tricyclics along with Zoloft, Celexa, Prozac, Wellbutrin and the Cymbalta. He reports that he has not been psychiatrically admitted in several years. He reports 1 prior suicide attempt many years ago by overdose on [place]. Tobacco Use In Past 30 Days: 5 or More Cigarettes/Day Alcohol Use: 2-4 Times Per Month Hospital Course Patient was admitted to a locked, inpatient psychiatric unit. Appropriate precautions were in place throughout patient's hospital stay. A general medical consultation was obtained. Patient was seen and examined daily on the unit by psychiatry and also visited by counselor. Medications were adjusted. Patient was started on Cymbalta that had previously been efficacious for his mood issues. Patient tolerated medications well without side effects. Patient had improvement in his presenting psychiatric symptomatology during the course of his hospital stay. There was no evidence of any suicidal or homicidal behavior on the inpatient psychiatric unit. The patient remained in good behavioral control and was medication compliant. On the day of discharge: Case discussed with nursing staff. No behavioral issues to report. On my examination today, the patient requests discharge from the inpatient psychiatric unit and says that his plan is to [facility]. Mood is improved versus admission. He denies any suicidal or homicidal ideation. He is future oriented. He denies any audiovisual hallucinations and there are no evident delusional beliefs. He denies side effects from medications. No physical complaints. Weighing the acute, chronic , and protective factors and based on the available evidence, I one piece expansion maker hand to a reasonable degree of medical certainty that the patient is at low imminent risk of harm to self or others from a mental illness and his level of function is adequate for outpatient care. The patient has maximized benefit from this inpatient psychiatric hospital stay and will be discharged today in stable condition with psychiatric follow-up as arranged by counselor. Patient is also to follow-up with primary care and dermatology. I have counseled the patient to return to the psychiatric emergency room for any concerning psychiatric symptoms as part of a general safety plan. Results Blood Pressure 122 / 82 Vital Signs Date Time Temp Pulse Resp B/P Pulse Ox O2 Delivery O2 Flow Rate FiO2 10/18/16 05:57 98.0 85 16 122/82 10/17/16 18:00 100 Item Value Date Time White Blood Count 9.9 TH/MM3 10/07/16 1200 Hemoglobin 14.8 GM/DL 10/07/16 1200 Platelet Count 279 TH/MM3 10/07/16 1200 Sodium Level 136 MEQ/L 10/08/16 0611 Potassium Level 3.5 MEQ/L 10/08/16 0611 Chloride Level 102 MEQ/L 10/08/16 0611 Blood Urea Nitrogen 13 MG/DL 10/08/16 0611 Creatinine 0.97 MG/DL 10/08/16 0611 Hemoglobin A1c 5.5 % 10/08/16 0611 Aspartate Amino Transf (AST/SGOT) 6 U/L L 10/08/16 0611 Alanine Aminotransferase (ALT/SGPT) 21 U/L 10/08/16 0611 Alkaline Phosphatase 62 U/L 10/08/16 0611 Urine Cocaine Screen POS H 10/07/16 1200 Urine Cannabinoids Screen POS H 10/07/16 1200 Ethyl Alcohol Level LESS THAN 3 MG/DL 10/07/16 1200 Summary of Procedures None done Imaging None done Pending results at discharge: No Medications # of Antipsychotic meds at D/C: 0 Approp Antipsych med options 1 - Minimum of three failed multiple trials of monotherapy. 2 - Documented plan to taper to monotherapy due to previous use of multiple meds OR cross-taper in progress at D/C. 3 - Documentation of augmentation of Clozapine. 4 - Justification other than those listed in allowable values 1-3, document here : Discharge Discharge Date: Oct 18, 2016 Discharge Diagnosis: (1) Drug-induced mood disorder Diagnosis: Principal (improved versus admission) ICD Code: F19.94 (2) Cocaine abuse Diagnosis: Secondary (counseled to quit) ICD Code: F14.10 (3) Cannabis abuse Diagnosis: Secondary (counseled to quit) ICD Code: F12.10 GAF on discharge is 60 Mental Status Exam at Disch Patient is casually dressed. He is well groomed. He is awake and alert and oriented 3. No abnormal motor movements noted. Steady gait and station. Speech is within normal limits for rate, tone and volume. Language and fund of knowledge seem average for age. Mood is improved versus admission and affect is somewhat blunted but within the range of normal. Thought process linear. No loosening of associations. No evident delusions. Denies audiovisual hallucinations. Denies suicidal or homicidal ideation. Insight and judgment are fair. Pt Condition on Discharge: Stable Discharge Disposition: Discharge Home Discharge Instructions Diet Instructions: As Tolerated, No Restrictions Activities you can perform: Weight Bearing as Kip Scheduled Appointment: [facility] behavioral services. Appointment Date: Oct 25, 2016 Appointment Time: 11:15am New Medications: Duloxetine DR (Duloxetine DR) 30 Mg Capdr 30 MG PO DIRECTED 60mg PO qAM and 30mg PO qHS. Mental Health Days 15 Ref 1 CAP Mupirocin Topical (Mupirocin Topical) 2 % Oint 1 APPLIC TOPICAL Q8HR open lesion Days 7 TUBE Continued Medications: Albuterol 18 GM Inh (Ventolin Hfa 18 GM Inh) 90 Mcg/Act Aer 2 PUFF INH Q4-6H PRN SHORTNESS OF BREATH #1 Ref 0 INHALER Amlodipine (Amlodipine) 10 Mg Tab 10 MG PO HS Blood Pressure Management #30 Ref 0 TAB Carvedilol (Carvedilol) 12.5 Mg Tab 12.5 MG PO DAILY #60 Ref 0 TAB Carvedilol (Carvedilol) 25 Mg Tab 25 MG PO HS #60 Ref 0 TAB Celecoxib (Celebrex) 200 Mg Cap 200 MG PO BID Pain Management Ref 0 CAP Fluticasone-Vilanterol Inh (Breo Ellipta Inh) 100-25 Mcg/Act Inh 1 PUFF INH DAILY Use daily at the same time. #1 Ref 0 INHALER Omeprazole (Omeprazole) 20 Mg Tab 20 MG PO DAILY #30 Ref 0 TAB Zolpidem (Zolpidem) 10 Mg Tab 10 MG PO HS PRN INSOMNIA Ref 0 TAB Discontinued Medications: Albuterol Neb (Albuterol Neb) 2.5 Mg/3 Ml Neb 2.5 MG NEB Q4HR NEB PRN SHORTNESS OF BREATH #60 Ref 0 NEBULE Carisoprodol (Soma) 350 Mg Tab 350 MG PO TID PRN PAIN Ref 0 TAB Oxycodone-Acetaminophen (Percocet) 10-325 mg Tab 1 TAB PO Q4-6H PRN PAIN Ref 0 TAB Discharge Time <= 30 minutes Discharge/Advance Care Plan Health Problems: (1) Drug-induced mood disorder (2) Cocaine abuse (3) Cannabis abuse Goals to promote your health * To prevent worsening of your condition and complications * To maintain your health at the optimal level Directions to meet your goals Take your medications as prescribed Follow your dietary instruction Follow activity as directed Keep your appointments as scheduled Take your immunizations and boosters as scheduled If your symptoms worsen call your PCP, if no PCP go to Urgent Care Center or Emergency Room For 21/04 questions related to your inpatient stay or results of tests pending at discharge, please contact Dr. Mk Villagomez at Smoking is Dangerous to Your Health. Avoid second hand smoking Mk Villagomez MD Oct 18, 2016 13:59
== END 2016-10-18 15:40 | DRG 897 ==
LOC: NEPA 11:42 → NEDA 22:31 → H260 10-08 00:57
PROVIDERS: ADMIT Psychiatry & Neurology Psychiatry; ATTEND Psychiatry & Neurology Psychiatry
DX: F19.94 Other psychoactive substance use, unspecified with psychoactive substance-induced mood disorder (principal); F14.10 Cocaine abuse, uncomplicated; R45.851 Suicidal ideations; F32.9 Major depressive disorder, single episode, unspecified; I10 Essential (primary) hypertension; J44.9 Chronic obstructive pulmonary disease, unspecified; H54.8 Legal blindness, as defined in USA; G47.30 Sleep apnea, unspecified; Z72.0 Tobacco use; F12.10 Cannabis abuse, uncomplicated; R22.1 Localized swelling, mass and lump, neck; Z91.5 Personal history of self-harm; G89.29 Other chronic pain; B95.62 Methicillin resistant Staphylococcus aureus infection as the cause of diseases classified elsewhere; G47.33 Obstructive sleep apnea (adult) (pediatric); M54.9 Dorsalgia, unspecified
CPT/HCPCS: 80048; 80053; 80061; 80307; 80320; 83036; 85025; 86403; 87070; 87077; 87147; 87186; 87205; 87641; 90471; 90472; 90686; 90732; 99284; G0008; G0009; Q0163; Q2038

== ENCOUNTER 2016-12-07 09:42 | Emergency (ER) | payer MEDICARE, MEDICAID ==
[~2016-12-07] VITALS: Ht 172.7 cm; Wt 95.5 kg
[~2016-12-07 09:42] MED LIST changes: -ALBU2.5I INH; +AMLO10TA2 PO; -AMLO5TAB22 PO; -CARV12.5 PO; +CARV12.52 PO; +CARV25TA PO; +CELE200C PO; -CORE25TA PO; -DOXY100T PO; +DULO1CAP2 PO; -FLUT1INH; +FLUT1INH INH; +MUPI2OIN TOPICAL; +OMEP20TA PO; -OMPR20CCR PO; -OXYC1SOL5 PO; -PRED20 PO; +VENTAER INH
[2016-12-07 10:01] VITALS: BP 124/83; PULSE 80; RESP 20; TEMP 97.8; O2SAT 94
--- NOTE | 2016-12-07 10:51 | PD ---
HPI Chief Complaint: Medication Refill Request Time Seen by Provider: 10:47 Travel History International Travel<30 days: No Contact w/Intl Traveler<30days: No Traveled to known affect area: No History of Present Illness HPI 51-year-old male presents to the emergency department requesting refills on Trileptal and Cymbalta for anxiety and depression. He has been out of his medications for 4 days. He was following up with Linda Perez NP, who apparently excused him from her office without medication refills, because he got into a confrontation with her about her being 3 hours behind on her patient care. Patient denies suicidal or homicidal ideations. He denies hallucinations. Patient is legally blind. He has no emergent medical complaints. No other modifying factors or associated signs and symptoms. History Past Medical Histgory Hx Chemotherapy: No Past Surgical History Surgical History: No Previous Surgery Social History Alcohol Use: No (Pt has been sober since 10/07/16) Tobacco Use: Yes Allergies-Medications (Allergen,Severity, Reaction): Coded Allergies: *MDRO Multi-Drug Resistant Organism (Verified Adverse Reaction, Unknown, ) 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 Reported Meds & Prescriptions Reported Meds & Active Scripts Active Duloxetine DR (Duloxetine HCl) 30 Mg Capdr 30 Mg PO DIRECTED 15 Days 60mg PO qAM and 30mg PO qHS. Mupirocin Topical (Mupirocin) 2 % Oint 1 Applic TOPICAL Q8HR 7 Days Reported Celebrex (Celecoxib) 200 Mg Cap 200 Mg PO BID Ventolin Hfa 18 GM Inh (Albuterol Sulfate) 90 Mcg/Act Aer 2 Puff INH Q4-6H PRN Zolpidem (Zolpidem Tartrate) 10 Mg Tab 10 Mg PO HS PRN Omeprazole 20 Mg Tab 20 Mg PO DAILY Breo Ellipta Inh (Fluticasone/Vilanterol) 100-25 Mcg/Act Inh 1 Puff INH DAILY Use daily at the same time. Carvedilol 25 Mg Tab 25 Mg PO HS Carvedilol 12.5 Mg Tab 12.5 Mg PO DAILY Amlodipine (Amlodipine Besylate) 10 Mg Tab 10 Mg PO HS Review of Systems Except as stated in HPI: all other systems reviewed are Neg Physical Exam Narrative GENERAL: Well-nourished, well-developed male patient, in no acute distress; legally blind SKIN: Warm and dry. HEAD: Atraumatic. Normocephalic. EYES: Pupils equal and round. ENT: Mucosa pink and moist. NECK: Supple. Trachea midline. CARDIOVASCULAR: Regular rate. RESPIRATORY: No accessory muscle use. GASTROINTESTINAL: Rounded. MUSCULOSKELETAL: No obvious deformities. No clubbing. No cyanosis. No edema. NEUROLOGICAL: Awake and alert. Oriented 3. No obvious cranial nerve deficits. Motor grossly within normal limits. Normal speech. Moves all extremities. 5/5 strength to all extremities. PSYCHIATRIC: No delusional thought processes. No hallucinations. Data Data Last Documented VS Vital Signs Date Time Temp Pulse Resp B/P Pulse Ox O2 Delivery O2 Flow Rate FiO2 12/07/16 10:01 97.8 80 20 124/83 94 Room Air MDM Medical Screen Exam Complete: Yes Emergency Medical Condition: No Differential Diagnosis Medication refill, medical clearance, malingering, depression, anxiety Narrative Course 51-year-old male requesting medication refill on Trileptal and Cymbalta for depression and anxiety. He denies suicidal or homicidal ideations. Denies hallucinations. He was following up with Linda Perez NP and apparently excuse the patient from her office secondary to confrontation with the patient. He did not get medication refills. The patient has no medical emergent complaints. I offered the patient to voluntarily admit himself for psych evaluation and he declined. Patient was provided with outpatient resources for follow-up. Vital signs are stable and the patient is stable for outpatient follow-up and treatment. The patient has no urgent or emergent medical complaints. There is no emergent or urgent medical need at this time. I instructed the patient to follow up with their primary care provider. A medical screening exam was performed: At the time of evaluation the presenting medical condition was determined not to be of an emergent nature. The patient was given the option of receiving additional care, but declined. Patient was given options for additional community resources from which to obtain care. The Patient Has Been advised to seek medical attention for their presenting complaint. The patient has been advised to return to the ER at any time if an emergent condition develops. Primary Impression: Encounter for medical screening examination Condition: Stable Lauren Seals Dec 07, 2016 10:51
== END 2016-12-07 11:06 | disposition left against medical advice (07) ==
LOC: NEPB 09:42
DX: F32.9 Major depressive disorder, single episode, unspecified (principal); Z76.0 Encounter for issue of repeat prescription
CPT/HCPCS: 99281

== ENCOUNTER 2017-07-02 16:59 | Emergency (ER) | payer MEDICARE, MEDICAID ==
[~2017-07-02] VITALS: Ht 177.8 cm; Wt 95.5 kg
[2017-07-02 17:01] VITALS: BP 126/83; PULSE 78; RESP 18; TEMP 98.5; O2SAT 98
[2017-07-02] MEDS ORDERED: VENTAER INH (17:14)
[2017-07-02] MEDS ORDERED: SPIRCAP INH (17:14)
[2017-07-02] MEDS ORDERED: FLUT1INH INH (17:14)
--- NOTE | 2017-07-02 17:15 | PD ---
HPI Chief Complaint: Medication Refill Request Time Seen by Provider: 17:07 Travel History International Travel<30 days: No Contact w/Intl Traveler<30days: No Traveled to known affect area: No History of Present Illness HPI 52-year-old male presents to emergency department requesting refills on his Ventolin HFA, Spiriva, Breo inhalers for his COPD and emphysema. He has been out of his inhalers for about 10 days. He is also requesting a referral to a new tax intern. He says his last tax intern dismissed him because he did not show up for his sleep study. He has no current medical complaints. Denies chest tightness, wheezing, shortness of breath, cough. No known allergies. Has no other medical complaints. Symptoms are mild in severity. No other modifying factors or associated signs and symptoms. PFSH Past Medical History Hx Anticoagulant Therapy: No Asthma: No (chronic bronchitis ) Anxiety: Yes Depression: Yes (since 13 years of age) Heart Rhythm Problems: No Cardiovascular Problems: Yes (HTN) High Cholesterol: No Chemotherapy: No Chest Pain: No Congestive Heart Failure: No COPD: Yes Cerebrovascular Accident: No Diabetes: No Endocrine: No GERD: Yes Genitourinary: No Hepatitis: Yes Hypertension: Yes Immune Disorder: No Musculoskeletal: No Neurologic: No Psychiatric: Yes Reproductive: No Respiratory: Yes Sleep Apnea: Yes Past Surgical History Abdominal Surgery: No Cardiac Surgery: No Ear Surgery: No Endocrine Surgery: No Eye Surgery: No Genitourinary Surgery: No Gynecologic Surgery: No Oral Surgery: No Thoracic Surgery: No Social History Alcohol Use: No (Pt has been sober since 10/07/16) Tobacco Use: Yes Substance Use: No Allergies-Medications (Allergen,Severity, Reaction): Coded Allergies: *MDRO Multi-Drug Resistant Organism (Verified Adverse Reaction, Unknown, 07/02/17) 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 Reported Meds & Prescriptions Reported Meds & Active Scripts Active Spiriva Handihaler (Tiotropium Inh) 18 Mcg Cap 18 Mcg INH DAILY 1 capsule = 18 mcg Ventolin Hfa 18 GM Inh (Albuterol Sulfate) 90 Mcg/Act Aer 2 Puff INH Q4-6H PRN Breo Ellipta Inh (Fluticasone/Vilanterol) 100-25 Mcg/Act Inh 1 Puff INH DAILY Use daily at the same time. Duloxetine DR (Duloxetine HCl) 30 Mg Capdr 30 Mg PO DIRECTED 15 Days 60mg PO qAM and 30mg PO qHS. Mupirocin Topical (Mupirocin) 2 % Oint 1 Applic TOPICAL Q8HR 7 Days Reported Celebrex (Celecoxib) 200 Mg Cap 200 Mg PO BID Zolpidem (Zolpidem Tartrate) 10 Mg Tab 10 Mg PO HS PRN Omeprazole 20 Mg Tab 20 Mg PO DAILY Carvedilol 25 Mg Tab 25 Mg PO HS Carvedilol 12.5 Mg Tab 12.5 Mg PO DAILY Amlodipine (Amlodipine Besylate) 10 Mg Tab 10 Mg PO HS Review of Systems Except as stated in HPI: all other systems reviewed are Neg Physical Exam Narrative GENERAL: Well-nourished, well-developed male patient, in no acute distress SKIN: Warm and dry. HEAD: Atraumatic. Normocephalic. EYES: Pupils equal and round. No scleral icterus. No injection or drainage. ENT: Mucosa pink and moist. Airway patent. NECK: Trachea midline. CARDIOVASCULAR: Regular rate and rhythm. No murmur appreciated. RESPIRATORY: No accessory muscle use. Clear to auscultation. Breath sounds equal bilaterally. No retractions or tachypnea. GASTROINTESTINAL: Rounded. MUSCULOSKELETAL: No obvious deformities. No clubbing. No cyanosis. No edema. NEUROLOGICAL: Awake and alert. Oriented 3. No obvious cranial nerve deficits. Motor grossly within normal limits. Normal speech. PSYCHIATRIC: Appropriate mood and affect; insight and judgment normal. Data Data Last Documented VS Vital Signs Date Time Temp Pulse Resp B/P (MAP) Pulse Ox O2 Delivery O2 Flow Rate FiO2 07/02/17 17:01 98.5 78 18 126/83 (97) 98 Room Air [facility] Medical Decision Making Medical Screen Exam Complete: Yes Emergency Medical Condition: Yes Medical Record Reviewed: Yes Differential Diagnosis Medication refill, COPD, emphysema, medical clearance Narrative Course 52-year-old male with history of COPD, emphysema, sleep apnea, presents for medication refill on his inhalers. Patient has no current medical complaints. Lung sounds are clear and equal throughout. Patient's oxygen saturation is 98% on room air. No retractions or tachypnea. Prescriptions for Ventolin, Spiriva , Breo provided. Instructed patient to follow up with primary care provider for referral to tax intern. Instructed patient to follow up with primary care provider. Patient verbalizes understanding and agreement with treatment plan. Patient is medically cleared and stable for discharge. Discussed reasons to return to the emergency department. Patient agrees with treatment plan. The patients vital signs are stable and the patient is stable for outpatient follow-up and treatment. Patient discharged home, stable and in no acute distress. Diagnosis Primary Impression: Medication refill Referrals: Primary Care Physician [place] Patient Instructions: General Instructions, Medication Refill, ED Additional Instructions: Follow-up with tax intern Follow-up with primary care provider Return to emergency department immediately with worsening of symptoms Med/Other Pt SpecificInfo: Prescription(s) given Scripts Tiotropium Inh (Spiriva Handihaler) 18 Mcg Cap 18 MCG INH DAILY for COPD, #30 CAP 0 Refills 1 capsule = 18 mcg Prov: Lauren Seals 07/02/17 Albuterol 18 GM Inh (Ventolin Hfa 18 GM Inh) 90 Mcg/Act Aer 2 PUFF INH Q4-6H Y for SHORTNESS OF BREATH, #1 INHALER 0 Refills Prov: Lauren Seals 07/02/17 Fluticasone-Vilanterol Inh (Breo Ellipta Inh) 100-25 Mcg/Act Inh 1 PUFF INH DAILY, #1 INHALER 0 Refills Use daily at the same time. Prov: Lauren Seals 07/02/17 Disposition: 01 DISCHARGE HOME Condition: Stable ( ) Lauren Seals Jul 02, 2017 17:15
== END 2017-07-02 17:20 | disposition home or self-care (01) ==
LOC: NEPK 16:59
DX: Z76.0 Encounter for issue of repeat prescription (principal); J43.9 Emphysema, unspecified; G47.30 Sleep apnea, unspecified; F41.9 Anxiety disorder, unspecified; F32.9 Major depressive disorder, single episode, unspecified; I10 Essential (primary) hypertension; K21.9 Gastro-esophageal reflux disease without esophagitis; Z79.899 Other long term (current) drug therapy
CPT/HCPCS: 99281

== ENCOUNTER 2017-11-29 07:46 | Emergency (ER) | payer MEDICARE, MEDICAID ==
[~2017-11-29] VITALS: Ht 172.7 cm; Wt 105.0 kg
[~2017-11-29 07:46] MED LIST changes: -OMEP20TA PO; +OMEP20TA93 PO; +SPIRCAP INH
[2017-11-29 07:52] VITALS: BP 166/99; PULSE 75; RESP 18; TEMP 97.7; O2SAT 98
[2017-11-29 07:56] VITALS: BP 166/99; PULSE 80; RESP 18; TEMP 97.7; O2SAT 99
[2017-11-29] MEDS ORDERED: REME15TA PO (08:03)
[2017-11-29] MEDS ORDERED: CARV25TA PO (08:03)
[2017-11-29] MEDS ORDERED: RAMI5CAP PO (08:03)
--- NOTE | 2017-11-29 08:20 | PD ---
HPI Chief Complaint: Dizziness Time Seen by Provider: 08:18 Travel History International Travel<30 days: No Contact w/Intl Traveler<30days: No Traveled to known affect area: No History of Present Illness HPI 52-year-old male came to the emergency room complaining of dizziness when he woke up this morning and went to stand up from his bed. This started at 3:30 this morning. Patient was getting ready to go to work but because of the dizziness did not end up going to work. Patient says that the dizziness has persisted since then. He decided that it has become little better but he came in since he usually doesn't get dizzy. He describes the dizziness as the room spinning around. He did not fall or lose consciousness at any point. No history of headaches. Vital signs were stable on arrival in the emergency room. Patient is legally blind. He does have history of hypertension that's been controlled with medication. 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 His last stress test was a year and half ago which was negative. Patient says he has another stress test due soon. No history of chest pain this time. No history of vomiting PFSH Past Medical History Narrative Medical List of his past medical, surgical, social and family history is reviewed from the nursing note. Hx Anticoagulant Therapy: No Asthma: No (chronic bronchitis ) Anxiety: Yes Depression: Yes (since 13 years of age) Heart Rhythm Problems: No Cardiovascular Problems: Yes (HTN) High Cholesterol: No Chemotherapy: No Chest Pain: No Congestive Heart Failure: No COPD: Yes Cerebrovascular Accident: No Diabetes: No Diminished Hearing: No Endocrine: No Gastrointestinal Disorders: Yes GERD: Yes Genitourinary: No Hepatitis: Yes (HEP C IN REMISSION ) Hypertension: Yes Immune Disorder: No Musculoskeletal: No Neurologic: No Psychiatric: Yes Reproductive: No Respiratory: Yes Sleep Apnea: Yes Tetanus Vaccination: > 5 Years Influenza Vaccination: Yes ?: Not Past Surgical History Abdominal Surgery: No Cardiac Surgery: No Ear Surgery: No Endocrine Surgery: No Eye Surgery: No Genitourinary Surgery: No Gynecologic Surgery: No Oral Surgery: No Thoracic Surgery: No Social History Alcohol Use: No (Pt has been sober since 10/07/16) Tobacco Use: Yes (ONCE OR TWICE A WEEK ) Substance Use: No Allergies-Medications (Allergen,Severity, Reaction): Coded Allergies: *MDRO Multi-Drug Resistant Organism (Verified Adverse Reaction, Unknown, 07/02/17) 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 Reported Meds & Prescriptions Reported Meds & Active Scripts Active Meclizine (Meclizine HCl) 25 Mg Tab 25 Mg PO TID PRN Spiriva Handihaler (Tiotropium Inh) 18 Mcg Cap 18 Mcg INH DAILY 1 capsule = 18 mcg Ventolin Hfa 18 GM Inh (Albuterol Sulfate) 90 Mcg/Act Aer 2 Puff INH Q4-6H PRN Breo Ellipta Inh (Fluticasone/Vilanterol) 100-25 Mcg/Act Inh 1 Puff INH DAILY Use daily at the same time. Reported Ramipril 5 Mg Cap 5 Mg PO DAILY Remeron (Mirtazapine) 15 Mg Tab 15 Mg PO HS Carvedilol 25 Mg Tab 25 Mg PO BID Celebrex (Celecoxib) 200 Mg Cap 200 Mg PO BID Omeprazole 20 Mg Tab 20 Mg PO DAILY Amlodipine (Amlodipine Besylate) 10 Mg Tab 10 Mg PO HS Narrative Medication List of his home medications reviewed from the nursing note. Review of Systems Except as stated in HPI: all other systems reviewed are Neg Neurologic: Positive: Dizziness Physical Exam Narrative GENERAL: Awake, alert, legally blind, no obvious distress SKIN: Focused skin assessment warm/dry. HEAD: Atraumatic. Normocephalic. EYES: Pupils equal and round. No scleral icterus. No injection or drainage. ENT: No nasal bleeding or discharge. Mucous membranes pink and moist. NECK: Trachea midline. No JVD. CARDIOVASCULAR: Regular rate and rhythm. No murmur appreciated. RESPIRATORY: No accessory muscle use. Clear to auscultation. Breath sounds equal bilaterally. GASTROINTESTINAL: Abdomen soft, non-tender, nondistended. Hepatic and splenic margins not palpable. MUSCULOSKELETAL: No obvious deformities. No clubbing. No cyanosis. No edema. NEUROLOGICAL: Awake and alert. No obvious cranial nerve deficits. Motor grossly within normal limits. Normal speech. Gait is slightly unsteady. PSYCHIATRIC: Appropriate mood and affect; insight and judgment normal. Data Data Last Documented VS Vital Signs Date Time Temp Pulse Resp B/P (MAP) Pulse Ox O2 Delivery O2 Flow Rate FiO2 11/29/17 13:37 100 11/29/17 09:20 71 18 Room Air 11/29/17 07:56 97.7 Orders Orders Electrocardiogram (11/29/17 08:56) Prothrombin Time / Inr (Pt) (11/29/17 08:56) Complete Blood Count With Diff (11/29/17 08:56) Basic Metabolic Panel (Bmp) (11/29/17 08:56) Troponin I (11/29/17 08:56) Ct Brain W/O Iv Contrast(Rout) (11/29/17 08:56) Chest, Single Ap (11/29/17 08:56) Ecg Monitoring (11/29/17 08:56) Iv Access Insert/Monitor (11/29/17 08:56) Oximetry (11/29/17 08:56) Sodium Chloride 0.9% Flush (Ns Flush) (11/29/17 09:00) Sodium Chlorid 0.9% 500 Ml Inj (Ns 500 M (11/29/17 09:00) Meclizine (Antivert) (11/29/17 09:00) Mri Brain W&W/O Contrast (11/29/17 ) Mra Brain W/O Contrast (Cow) (11/29/17 ) Mra Carotids W/O Contrast (11/29/17 ) Gadodiamide Pf Inj (Omniscan Pf Inj) (11/29/17 11:00) Ed Discharge Order (11/29/17 12:17) Labs Laboratory Tests Test 11/29/17 08:50 White Blood Count 9.6 TH/MM3 Red Blood Count 5.09 MIL/MM3 Hemoglobin 15.4 GM/DL Hematocrit 43.5 % Mean Corpuscular Volume 85.3 FL Mean Corpuscular Hemoglobin 30.3 PG Mean Corpuscular Hemoglobin Concent 35.5 % Red Cell Distribution Width 13.6 % Platelet Count 270 TH/MM3 Mean Platelet Volume 7.5 FL Neutrophils (%) (Auto) 59.1 % Lymphocytes (%) (Auto) 25.2 % Monocytes (%) (Auto) 8.9 % Eosinophils (%) (Auto) 5.9 % Basophils (%) (Auto) 0.9 % Neutrophils # (Auto) 5.7 TH/MM3 Lymphocytes # (Auto) 2.4 TH/MM3 Monocytes # (Auto) 0.9 TH/MM3 Eosinophils # (Auto) 0.6 TH/MM3 Basophils # (Auto) 0.1 TH/MM3 CBC Comment DIFF FINAL Differential Comment Prothrombin Time 11.4 SEC Prothromb Time International Ratio 1.1 RATIO Blood Urea Nitrogen 16 MG/DL Creatinine 1.15 MG/DL Random Glucose 83 MG/DL Calcium Level 9.5 MG/DL Sodium Level 135 MEQ/L Potassium Level 3.6 MEQ/L Chloride Level 101 MEQ/L Carbon Dioxide Level 22.9 MEQ/L Anion Gap 11 MEQ/L Estimat Glomerular Filtration Rate 66 ML/MIN Troponin I LESS THAN 0.02 NG/ML MDM Medical Decision Making Medical Screen Exam Complete: Yes Emergency Medical Condition: Yes Medical Record Reviewed: Yes Interpretation(s) Twelve-lead EKG was reviewed by me. Normal sinus rhythm, normal axis, nonspecific ST-T wave changes. Heart rate of 76 bpm. Differential Diagnosis CVA, BPV Narrative Course 12:25 PM blood test results of back and within acceptable limits. Head CT was negative for any acute bleed. I proceeded to order an MRI to rule out any posterior circulation CVA. The MRI of the brain, MRA of the brain and MRA of the neck have all been read negative. Patient was given meclizine for the dizziness. He appears to be quite comfortable. I have informed him of his test results. Patient will be discharged home on meclizine and instructions. Procedures EKG Prior to Arrival: No Diagnosis Primary Impression: Vertigo Referrals: Primary Care Physician Additional Instructions: You should not be driving or so until the symptoms subside. Please follow-up with her primary care. Take the medication as per the prescription direction. Return to the ER if condition worsens or any other new concerns. Med/Other Pt SpecificInfo: Prescription(s) given Scripts Meclizine (Meclizine) 25 Mg Tab 25 MG PO TID Y for VERTIGO, #15 TAB 0 Refills Prov: Orestes Navas MD 11/29/17 Disposition: 01 DISCHARGE HOME Condition: Stable Orestes Navas MD Nov 29, 2017 08:19
[2017-11-29] MEDS ORDERED: SODIUM CHLORIDE 0.9% FLUSH 10 ML FLUSH IVF PRN (09:00)
[2017-11-29] MEDS ORDERED: MECLIZINE HCL 25 MG TAB PO ONE (09:00)
[2017-11-29] MEDS ORDERED: SODIUM CHLORID 0.9% 500 ML INJ 500 ML IV ONE (09:00)
[2017-11-29 09:08] VITALS: O2SAT 99
[2017-11-29 09:12] LABS: AUTOMATED NEUTROPHIL # 5.7 TH/MM3 (1.8-7.7); BASOPHIL # 0.1 TH/MM3 (0-0.2); BASOPHIL % 0.9 % (0.0-2.0); EOSINOPHIL # 0.6 TH/MM3 (0-0.4); EOSINOPHIL % 5.9 % (0.0-4.0); HEMATOCRIT 43.5 % (39.0-51.0); HEMOGLOBIN 15.4 GM/DL (13.0-17.0); LYMPH % 25.2 % (9.0-44.0); LYMPHOCYTE # 2.4 TH/MM3 (1.0-4.8); MEAN CELL VOLUME 85.3 FL (80.0-100.0); MEAN CORPUSCULAR HEMOGLOBIN 30.3 PG (27.0-34.0); MEAN CORPUSCULAR HGB CONC 35.5 % (32.0-36.0); MEAN PLATELET VOLUME 7.5 FL (7.0-11.0); MONO % 8.9 % (0.0-8.0); MONOCYTE # 0.9 TH/MM3 (0-0.9); NEUT % 59.1 % (16.0-70.0); PLATELET COUNT 270 TH/MM3 (150-450); RED BLOOD COUNT 5.09 MIL/MM3 (4.50-5.90); RED CELL DISTRIBUTION WIDTH 13.6 % (11.6-17.2); WHITE BLOOD COUNT 9.6 TH/MM3 (4.0-11.0)
[2017-11-29 09:18] LABS: INTERNATIONAL NORMALIZED RATIO 1.1 RATIO; PROTHROMBIN TIME - PATIENT 11.4 SEC (9.8-11.6)
[2017-11-29 09:20] VITALS: BP 140/87; PULSE 71; RESP 18; O2SAT 99
--- NOTE | 2017-11-29 09:25 | RADRPT ---
EXAM DATE/TIME: 11/29/2017 09:07 [facility] COMPARISON: CHEST SINGLE AP, October 16, 2014, 4:46. INDICATIONS : Shortness of breath and dizziness. MEDICAL HISTORY : Hypertension. SURGICAL HISTORY : None. ENCOUNTER: Initial ACUITY: 1 day PAIN SCORE: 0/10 LOCATION: chest FINDINGS: A single view of the chest demonstrates the lungs to be symmetrically aerated without evidence of mas s, infiltrate or effusion. The cardiomediastinal contours are unremarkable. Osseous structures are intact. CONCLUSION: Normal examination. Healed fifth and sixth rib fractures Nate Kumari MD on November 29, 2017 at 9:24 Board Certified Radiologist. This report was verified electronically.
[2017-11-29 09:35] LABS: BICARBONATE 22.9 MEQ/L (21.0-32.0); BLOOD UREA NITROGEN 16 MG/DL (7-18); CALCIUM 9.5 MG/DL (8.5-10.1); CHLORIDE 101 MEQ/L (98-107); CREATININE 1.15 MG/DL (0.60-1.30); GLOMERULAR FILTRATION RATE 66 ML/MIN (>89); GLUCOSE,RANDOM 83 MG/DL (74-106); SODIUM (NA) 135 MEQ/L (136-145)
[2017-11-29 09:39] LABS: TROPONIN I LESS THAN 0.02 NG/ML (0.02-0.05)
--- NOTE | 2017-11-29 10:11 | RADRPT ---
EXAM DATE/TIME: 11/29/2017 10:02 [facility] COMPARISON: CT BRAIN W/O CONTRAST, October 15, 2014, 11:15. INDICATIONS : Weakness, bilateral migraines RADIATION DOSE: 42.18 CTDIvol (mGy) MEDICAL HISTORY : Seizures. Hypertension. Cardiovascular disease SURGICAL HISTORY : None. ENCOUNTER: Initial ACUITY: 1 day PAIN SCALE: 7/10 LOCATION: Bilateral cranial TECHNIQUE: Multiple contiguous axial images were obtained of the head. Using automated exposure control and adj ustment of the mA and/or kV according to patient size, radiation dose was kept as low as reasonably a chievable to obtain optimal diagnostic quality images. DICOM format image data is available electro nically for review and comparison. FINDINGS: CEREBRUM: The ventricles are normal for age. No evidence of midline shift, mass lesion, hemorrhage or acute in farction. No extra-axial fluid collections are seen. POSTERIOR FOSSA: The cerebellum and brainstem are intact. The 4th ventricle is midline. The cerebellopontine angle i s unremarkable. EXTRACRANIAL: The visualized portion of the orbits is intact. SKULL: The calvaria is intact. No evidence of skull fracture. CONCLUSION: Normal examination. Nate Kumari MD on November 29, 2017 at 10:10 Board Certified Radiologist. This report was verified electronically.
[2017-11-29] MEDS ORDERED: GADODIAMIDE PF 287 MG/ML 20 ML VIAL (for RAD MRI) IVCONTRAST ONE (11:00)
--- NOTE | 2017-11-29 11:39 | RADRPT ---
EXAM DATE/TIME: 11/29/2017 10:48 [facility] COMPARISON: No previous studies available for comparison. INDICATIONS : Dizziness. MEDICAL HISTORY : Hypertension. SURGICAL HISTORY : None. ENCOUNTER: Initial ACUITY: 1 day PAIN SCORE: 0/10 LOCATION: neck Percent stenosis is calculated using the diameter of the stenotic region over the diameter of the nor mal distal internal carotid artery. TECHNIQUE: 3D time of flight MRA of the extracranial circulation was performed using a neurovascular coil. Post processing was performed including rotating subvolume maximum intensity projections of each carotid artery, rotating full-volume maximum intensity projections of both carotid arteries, sagittal and cor onal sliding thin-slab reformations of each carotid artery, and left oblique sliding thin slab reform ation through the aortic arch to include the origin of the arch branch vessels. FINDINGS: AORTIC ARCH: There is a two vessel origin of the great vessels from the aorta. No evidence of ostial narrowing. RIGHT CAROTID: The common carotid artery is intact. The carotid bulb has a normal configuration without ulceration or narrowing. The internal carotid artery lumen is smooth without stenosis. The external carotid ar larisa is intact. LEFT CAROTID: The common carotid artery is intact. The carotid bulb has a normal configuration without ulceration or narrowing. The internal carotid artery lumen is smooth without stenosis. The external carotid ar larisa is intact. VERTEBRALS: The vertebral arteries are minimally asymmetric diameter. The left vertebral artery slightly larger t arteaga the right No stenotic lesions are seen. CONCLUSION: Normal examination. Nate Kumari MD on November 29, 2017 at 11:37 Board Certified Radiologist. This report was verified electronically.
--- NOTE | 2017-11-29 11:40 | RADRPT ---
EXAM DATE/TIME: 11/29/2017 10:48 [facility] COMPARISON: No previous studies available for comparison. INDICATIONS : Cephalgia. Dizziness. MEDICAL HISTORY : Hypertension. SURGICAL HISTORY : None. ENCOUNTER: Initial ACUITY: 1 day PAIN SCORE: 5/10 LOCATION: cranial Please note a normal MRA of the brain does not entirely exclude the possibility of a small aneurysm, nor the possibility of distal intracranial vessel disease. TECHNIQUE: 3D time of flight MRA was performed. Source images, multiplanar STS MIP, and 3D volume MIP reconstru ctions were reviewed. FINDINGS: There is excellent visualization of the major intracranial arteries out to the second-order branch ve ssels. There is no evidence for aneurysm, vessel truncation or stenosis, and no evidence for vascula r malformation. CONCLUSION: Normal examination. Nate Kumari MD on November 29, 2017 at 11:39 Board Certified Radiologist. This report was verified electronically.
--- NOTE | 2017-11-29 11:42 | RADRPT ---
EXAM DATE/TIME: 11/29/2017 10:48 [facility] COMPARISON: No previous studies available for comparison. INDICATIONS : Cephalgia. Dizziness. CONTRAST: 20 cc Omniscan (gadodiamide) IV MEDICAL HISTORY : Hypertension. SURGICAL HISTORY : None. ENCOUNTER: Initial ACUITY: 1 day PAIN SCORE: 5/10 LOCATION: cranial TECHNIQUE: Multiplanar, multisequence MRI of the brain was performed both prior to and following the administrat ion of paramagnetic contrast. FINDINGS: CEREBRUM: The ventricles are normal for age. No evidence of midline shift, mass lesion, hemorrhage or acute in farction. No extraaxial fluid collections are seen. The pituitary gland and suprasellar cistern are normal in configuration. WHITE MATTER: No significant signal abnormalities are seen in the white matter. POSTERIOR FOSSA: The cerebellum and brainstem are intact. The 4th ventricle is midline. The cerebellopontine angle is unremarkable. The cerebellar tonsils are normal in position. DIFFUSION IMAGING: No focal areas of restricted diffusion are seen. No evidence of acute infarction. EXTRACRANIAL: The visualized portions of the orbits and paranasal sinuses are unremarkable. Hypoplastic right maxil porsha sinus POST-CONTRAST: No abnormal areas of parenchymal or dural enhancement. No evidence of blood-brain barrier breakdown. CONCLUSION: Hypoplastic right maxillary sinus. Unremarkable intracranial exam. No evidence of an acute stroke, ma ss or mass effect. Nate Kumari MD on November 29, 2017 at 11:40 Board Certified Radiologist. This report was verified electronically.
[2017-11-29] MEDS ORDERED: MECL-62 PO (12:18)
--- NOTE | 2017-11-30 13:25 | EKG ---
Date Performed: 11/29/2017 Time Performed: 07:57:30 PTAGE: 52 years EKG: Sinus rhythm NORMAL ECG INTERPRETATION BASED ON A DEFAULT AGE OF 38 YEARS NO PREVIOUS TRACING DOCTOR: Nate Mantilla Interpretating Date/Time 11/30/2017 13:21:54
== END 2017-11-29 13:40 | disposition home or self-care (01) ==
LOC: NEPE 07:46
DX: R42 Dizziness and giddiness (principal); I10 Essential (primary) hypertension; H54.8 Legal blindness, as defined in USA; F41.9 Anxiety disorder, unspecified; J44.9 Chronic obstructive pulmonary disease, unspecified; K21.9 Gastro-esophageal reflux disease without esophagitis; G47.30 Sleep apnea, unspecified; Z72.0 Tobacco use; Z86.19 Personal history of other infectious and parasitic diseases
CPT/HCPCS: 70450; 70544; 70547; 70553; 71045; 80048; 84484; 85025; 85610; 93005; 96360; 99285; A9579; J7040

== ENCOUNTER 2017-12-07 15:09 | Inpatient (IN) | payer MEDICARE, MEDICAID ==
[2017-12-07] VITALS (14 sets, daily range): BP systolic 89–169; BP diastolic 58–86; PULSE 74–102; RESP 8–16; TEMP 97.7–99.1; O2SAT 88–100
[~2017-12-07 15:09] MED LIST changes: -CARV12.52 PO; -DULO1CAP2 PO; +MECL-62 PO; -MUPI2OIN TOPICAL; +RAMI5CAP PO; +REME15TA PO; -ZOLP10TA3 PO
--- NOTE | 2017-12-07 15:38 | PD ---
HPI Chief Complaint: Dizziness Time Seen by Provider: 15:31 Travel History International Travel<30 days: No Contact w/Intl Traveler<30days: No Traveled to known affect area: No History of Present Illness HPI Patient presents with complaints of dizziness and near-syncope today. Significant workup completed on 11/29 with a negative chest x-ray head CT brain MRI head MRI and neck MRI. Diagnosed with vertigo and sent home with meclizine. He does take OxyContin and Percocet as well as Celebrex for general arthropathy. States he took a OxyContin and Percocet at 2 PM. This episode occurred approximately 3 PM. Denies any nausea vomiting diarrhea or fever. Denies any chest pain shortness of breath urinary or bowel symptoms. PFSH Past Medical History Hx Anticoagulant Therapy: No Asthma: No (chronic bronchitis ) Anxiety: Yes Depression: Yes (since 13 years of age) Heart Rhythm Problems: No Cardiovascular Problems: Yes (HTN) High Cholesterol: No Chemotherapy: No Chest Pain: No Congestive Heart Failure: No COPD: Yes Cerebrovascular Accident: No Diabetes: No Diminished Hearing: No Endocrine: No Gastrointestinal Disorders: Yes GERD: Yes Genitourinary: No Hepatitis: Yes (HEP C IN REMISSION ) Hypertension: Yes Immune Disorder: No Musculoskeletal: No Neurologic: No Psychiatric: Yes Reproductive: No Respiratory: Yes Sleep Apnea: Yes Past Surgical History Abdominal Surgery: No Cardiac Surgery: No Ear Surgery: No Endocrine Surgery: No Eye Surgery: No Genitourinary Surgery: No Gynecologic Surgery: No Oral Surgery: No Thoracic Surgery: No Social History Alcohol Use: No (Pt has been sober since 10/07/16) Tobacco Use: Yes (ONCE OR TWICE A WEEK ) Substance Use: No Allergies-Medications (Allergen,Severity, Reaction): Coded Allergies: *MDRO Multi-Drug Resistant Organism (Verified Adverse Reaction, Unknown, 07/02/17) 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 Reported Meds & Prescriptions Reported Meds & Active Scripts Active Spiriva Handihaler (Tiotropium Inh) 18 Mcg Cap 18 Mcg INH DAILY 1 capsule = 18 mcg Ventolin Hfa 18 GM Inh (Albuterol Sulfate) 90 Mcg/Act Aer 2 Puff INH Q4-6H PRN Breo Ellipta Inh (Fluticasone/Vilanterol) 100-25 Mcg/Act Inh 1 Puff INH DAILY Use daily at the same time. Reported Trileptal (Oxcarbazepine) 150 Mg Tab Unknown Dose PO BID Ramipril 5 Mg Cap 5 Mg PO DAILY Remeron (Mirtazapine) 15 Mg Tab 15 Mg PO HS Carvedilol 25 Mg Tab 25 Mg PO BID Celebrex (Celecoxib) 200 Mg Cap 200 Mg PO BID Omeprazole 20 Mg Tab 20 Mg PO DAILY Amlodipine (Amlodipine Besylate) 10 Mg Tab 10 Mg PO HS Review of Systems General / Constitutional: No: Fever Eyes: No: Visual changes HENT: Positive: Vertigo, Lightheadedness, No: Headaches Cardiovascular: No: Chest Pain or Discomfort Respiratory: No: Shortness of Breath Gastrointestinal: No: Abdominal Pain Genitourinary: No: Dysuria Musculoskeletal: No: Pain Skin: No Rash Neurologic: No: Weakness Psychiatric: No: Depression Endocrine: No: Polydipsia Hematologic/Lymphatic: No: Easy Bruising Physical Exam Narrative GENERAL: Well-nourished, well-developed patient. Patient is drowsy, continues to fall asleep but awakens easily. Slow to answer questions. O2 sats when he falls asleep. Currently resting comfortably on 2 L at 94%. SKIN: Focused skin assessment warm/dry. HEAD: Normocephalic. EYES: No scleral icterus. No injection or drainage. NECK: Supple, trachea midline. No JVD or lymphadenopathy. CARDIOVASCULAR: Regular rate and rhythm without murmurs, gallops, or rubs. RESPIRATORY: Breath sounds equal bilaterally. No accessory muscle use. GASTROINTESTINAL: Abdomen soft, non-tender, nondistended. MUSCULOSKELETAL: No cyanosis, or edema. BACK: Nontender without obvious deformity. No CVA tenderness. Data Data Last Documented VS Vital Signs Date Time Temp Pulse Resp B/P (MAP) Pulse Ox O2 Delivery O2 Flow Rate FiO2 12/07/17 18:30 12 100 Non-Rebreather 10.00 12/07/17 18:12 87 12/07/17 15:23 97.7 Orders Orders Complete Blood Count With Diff (12/07/17 15:38) Basic Metabolic Panel (Bmp) (12/07/17 15:38) Urinalysis - C+S If Indicated (12/07/17 15:38) Drug Screen, Random Urine (12/07/17 15:38) Sodium Chlor 0.9% 1000 Ml Inj (Ns 1000 M (12/07/17 16:45) Naloxone Inj (Narcan Inj) (12/07/17 17:30) Naloxone Inj (Narcan Inj) (12/07/17 17:45) Naloxone Inj (Narcan Inj) (12/07/17 18:30) Arterial Blood Gas (Abg) (12/07/17 ) Admit Order (Ed Use Only) (12/07/17 ) Osteopathic Neurologist / Telemetry IDALIA.Q8H (12/07/17 18:49) Vital Signs (Adult) Q4H (12/07/17 18:49) Diet Npo (12/07/17 Dinner) Activity Bed Rest (12/07/17 18:49) Notify Dr: Other (12/07/17 18:49) Labs Laboratory Tests Test 12/07/17 15:50 12/07/17 16:35 White Blood Count 10.2 TH/MM3 Red Blood Count 4.82 MIL/MM3 Hemoglobin 13.8 GM/DL Hematocrit 41.2 % Mean Corpuscular Volume 85.6 FL Mean Corpuscular Hemoglobin 28.7 PG Mean Corpuscular Hemoglobin Concent 33.5 % Red Cell Distribution Width 12.5 % Platelet Count 247 TH/MM3 Mean Platelet Volume 7.5 FL Neutrophils (%) (Auto) 56.8 % Lymphocytes (%) (Auto) 25.9 % Monocytes (%) (Auto) 7.4 % Eosinophils (%) (Auto) 8.6 % Basophils (%) (Auto) 1.3 % Neutrophils # (Auto) 5.8 TH/MM3 Lymphocytes # (Auto) 2.6 TH/MM3 Monocytes # (Auto) 0.8 TH/MM3 Eosinophils # (Auto) 0.9 TH/MM3 Basophils # (Auto) 0.1 TH/MM3 CBC Comment DIFF FINAL Differential Comment Blood Urea Nitrogen 27 MG/DL Creatinine 1.50 MG/DL Random Glucose 99 MG/DL Calcium Level 8.9 MG/DL Sodium Level 137 MEQ/L Potassium Level 3.7 MEQ/L Chloride Level 102 MEQ/L Carbon Dioxide Level 26.0 MEQ/L Anion Gap 9 MEQ/L Estimat Glomerular Filtration Rate 49 ML/MIN Urine Collection Type CATH Urine Color YELLOW Urine Turbidity SL CLOUDY Urine pH 5.0 Urine Specific Sanders GREATER/EQUAL 1.030 Urine Protein TRACE mg/dL Urine Glucose (UA) NEG mg/dL Urine Ketones NEG mg/dL Urine Occult Blood NEG Urine Nitrite NEG Urine Bilirubin NEG Urine Urobilinogen 0.2 MG/DL Urine Leukocyte Esterase NEG Urine WBC 0-2 /hpf Urine Squamous Epithelial Cells 0-5 /hpf Urine Amorphous Sediment MOD Urine Hyaline Casts 10-14 /lpf Microscopic Urinalysis Comment CATH-CULT NOT IND Urine Collection Time 1635 Urine Opiates Screen POS Urine Barbiturates Screen NEG Urine Amphetamines Screen NEG Urine Benzodiazepines Screen NEG Urine Cocaine Screen POS Urine Cannabinoids Screen POS MDM Medical Decision Making Medical Screen Exam Complete: Yes Emergency Medical Condition: Yes Differential Diagnosis Pain medication abuse, pain medication overdose, hypoxia, vertigo, fatigue Narrative Course Assessment and plan discussed with patient at bedside. I do not think a more extensive workup is necessary at this time. Patient responded to Narcan with increased awareness. Urinalysis noted. During observation patient started to become less responsive, respirations dropped to 10. O2 sat would drop to 60-70 unless constantly being stimulated. Narcan drip started with titration. ABG ordered to rule out elevated CO2. Physician Communication Physician Communication Spoke with Dr. Aviles who was in agreement will admit to the unit Diagnosis Primary Impression: Substance abuse Additional Impression: Change in mental status Qualified Codes: R40.0 - Somnolence Jhonathan Riley MD Dec 07, 2017 15:38
[2017-12-07 15:58] LABS: AUTOMATED NEUTROPHIL # 5.8 TH/MM3 (1.8-7.7); BASOPHIL # 0.1 TH/MM3 (0-0.2); BASOPHIL % 1.3 % (0.0-2.0); EOSINOPHIL # 0.9 TH/MM3 (0-0.4); EOSINOPHIL % 8.6 % (0.0-4.0); HEMATOCRIT 41.2 % (39.0-51.0); HEMOGLOBIN 13.8 GM/DL (13.0-17.0); LYMPH % 25.9 % (9.0-44.0); LYMPHOCYTE # 2.6 TH/MM3 (1.0-4.8); MEAN CELL VOLUME 85.6 FL (80.0-100.0); MEAN CORPUSCULAR HEMOGLOBIN 28.7 PG (27.0-34.0); MEAN CORPUSCULAR HGB CONC 33.5 % (32.0-36.0); MEAN PLATELET VOLUME 7.5 FL (7.0-11.0); MONO % 7.4 % (0.0-8.0); MONOCYTE # 0.8 TH/MM3 (0-0.9); NEUT % 56.8 % (16.0-70.0); PLATELET COUNT 247 TH/MM3 (150-450); RED BLOOD COUNT 4.82 MIL/MM3 (4.50-5.90); RED CELL DISTRIBUTION WIDTH 12.5 % (11.6-17.2); WHITE BLOOD COUNT 10.2 TH/MM3 (4.0-11.0)
[2017-12-07 16:14] LABS: CALCIUM 8.9 MG/DL (8.5-10.1)
[2017-12-07 16:18] LABS: CREATININE 1.5 MG/DL (0.60-1.30)
[2017-12-07] MEDS ORDERED: SODIUM CHLOR 0.9% 1000 ML INJ 1,000 ML IV ONE (16:45)
[2017-12-07 17:00] LABS: BLOOD, URINE NEG (NEG); GLUCOSE,URINE NEG (NEG); KETONE, URINE NEG (NEG); NITRITE,URINE NEG (NEG); URINE COLOR YELLOW (YELLW/STRAW); URINE LEUKOCYTE ESTERASE NEG (NEG)
[2017-12-07 17:07] LABS: BILIRUBIN, URINE NEG (NEG)
[2017-12-07 17:09] LABS: AMORPHOUS SEDIMENT, URINE MOD; SQUAMOUS EPITHELIAL CELL URINE 0-5 /hpf (0-5); WBC, URINE 0-2 /hpf (0-5)
[2017-12-07] MEDS ORDERED: TRIL150T PO (17:10)
[2017-12-07] MEDS ORDERED: NALOXONE HCL 0.4 MG/ML AMP IV PUSH ONE ×2 (17:30→17:45)
[2017-12-07] MEDS: NALOXONE INJ 4 MG in DEXTROSE 5% IN WATER INJ 246 ML IV SCH ×2 (18:57)
[2017-12-07] MEDS ORDERED: OXYC-103 PO ×2 (19:21)
[2017-12-07] MEDS ORDERED: PERC10TA27 PO (19:21)
[2017-12-07] MEDS ORDERED: SODIUM CHLORIDE 0.9% FLUSH 10 ML FLUSH IV FLUSH PRN (19:30)
[2017-12-07] MEDS ORDERED: NALOXONE HCL 0.4 MG/ML AMP IV PUSH PRN (19:30)
[2017-12-07] MEDS ORDERED: MAGNESIUM HYDROXIDE SUSP 30 ML CUP PO PRN (19:30)
[2017-12-07] MEDS ORDERED: ONDANSETRON HCL 4 MG/2 ML VIAL IVP PRN (19:30)
[2017-12-07] MEDS: SODIUM CHLOR 0.9% 1000 ML INJ 1,000 ML IV SCH ×3 (20:39→22:59)
[2017-12-07] MEDS: SODIUM CHLORIDE 0.9% FLUSH 10 ML FLUSH IV FLUSH SCH (21:00)
[2017-12-07] MEDS: MIRTAZAPINE 15 MG TAB PO SCH (22:47)
[2017-12-07] MEDS: OXcarbazepine 150 MG TAB PO SCH (22:47)
[2017-12-08] VITALS (20 sets, daily range): BP systolic 96–172; BP diastolic 50–94; PULSE 72–87; RESP 6–20; TEMP 97.6–98.5; O2SAT 93–100
[2017-12-08 05:29] LABS: AUTOMATED NEUTROPHIL # 3.2 TH/MM3 (1.8-7.7); BASOPHIL # 0.1 TH/MM3 (0-0.2); BASOPHIL % 0.8 % (0.0-2.0); EOSINOPHIL # 0.8 TH/MM3 (0-0.4); EOSINOPHIL % 11.3 % (0.0-4.0); HEMATOCRIT 38.7 % (39.0-51.0); HEMOGLOBIN 13.1 GM/DL (13.0-17.0); LYMPH % 33.4 % (9.0-44.0); LYMPHOCYTE # 2.4 TH/MM3 (1.0-4.8); MEAN CORPUSCULAR HEMOGLOBIN 29.2 PG (27.0-34.0); MEAN CORPUSCULAR HGB CONC 33.9 % (32.0-36.0); MEAN PLATELET VOLUME 7.7 FL (7.0-11.0); MONO % 7.9 % (0.0-8.0); MONOCYTE # 0.6 TH/MM3 (0-0.9); NEUT % 46.6 % (16.0-70.0); PLATELET COUNT 210 TH/MM3 (150-450); RED CELL DISTRIBUTION WIDTH 12.5 % (11.6-17.2); WHITE BLOOD COUNT 7.1 TH/MM3 (4.0-11.0)
[2017-12-08 05:38] LABS: CHLORIDE 105 MEQ/L (98-107); SODIUM (NA) 139 MEQ/L (136-145)
[2017-12-08 05:58] LABS: ALBUMIN 3.1 GM/DL (3.4-5.0); ALKALINE PHOSPHATASE 70 U/L (45-117); ALT (GPT) 22 U/L (12-78); AST (GOT) 21 U/L (15-37); BICARBONATE 25.9 MEQ/L (21.0-32.0); BLOOD UREA NITROGEN 17 MG/DL (7-18); CALCIUM 7.9 MG/DL (8.5-10.1); CREATININE 0.92 MG/DL (0.60-1.30); GLOMERULAR FILTRATION RATE 86 ML/MIN (>89); GLUCOSE,RANDOM 78 MG/DL (74-106); TOTAL BILIRUBIN ADULT 0.7 MG/DL (0.2-1.0); TOTAL PROTEIN 6.5 GM/DL (6.4-8.2)
[2017-12-08] MEDS: NALOXONE INJ 4 MG in DEXTROSE 5% IN WATER INJ 246 ML IV SCH ×2 (06:36)
[2017-12-08] MEDS: CARVEDILOL 12.5 MG TAB PO SCH ×2 (08:31→20:06)
[2017-12-08] MEDS: OXcarbazepine 150 MG TAB PO SCH ×2 (08:39→20:06)
[2017-12-08] MEDS: PANTOPRAZOLE SOD 20 MG DELAYED RELEASE TAB PO SCH (09:00)
[2017-12-08] MEDS: TIOTROPIUM BROMIDE 18 MCG INH INH SCH (09:00)
[2017-12-08] MEDS: SODIUM CHLORIDE 0.9% FLUSH 10 ML FLUSH IV FLUSH SCH ×2 (09:00→20:06)
[2017-12-08] MEDS: FLUTICASONE 100 MCG/VILANTEROL 25 MCG INHALER INH SCH (09:00)
[2017-12-08] MEDS: RAMIPRIL 5 MG CAP PO SCH (09:00)
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
[2017-12-08] MEDS ORDERED: RESP: ALBUTEROL 2.5 MG/3 ML NEB (PRN) NEB (10:00)
[2017-12-08] MEDS: MIRTAZAPINE 15 MG TAB PO SCH (20:05)
[2017-12-09] VITALS: BP 119/76; PULSE 80; RESP 16; TEMP 97.8; O2SAT 95
[2017-12-09] MEDS: SODIUM CHLOR 0.9% 1000 ML INJ 1,000 ML IV SCH (01:39)
[2017-12-09 02:00] VITALS: PULSE 70
[2017-12-09 04:00] VITALS: BP 133/77; PULSE 70; RESP 9; O2SAT 97
[2017-12-09 06:00] VITALS: PULSE 70
[2017-12-09 07:42] VITALS: O2SAT 96
[2017-12-09 08:00] VITALS: BP 126/70; PULSE 74; RESP 14; TEMP 98; O2SAT 94
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
[2017-12-09] MEDS: TIOTROPIUM BROMIDE 18 MCG INH INH SCH (09:00)
[2017-12-09] MEDS: CARVEDILOL 12.5 MG TAB PO SCH (09:15)
[2017-12-09] MEDS: RAMIPRIL 5 MG CAP PO SCH (09:15)
[2017-12-09] MEDS: PANTOPRAZOLE SOD 20 MG DELAYED RELEASE TAB PO SCH (09:15)
[2017-12-09] MEDS: OXcarbazepine 150 MG TAB PO SCH (09:16)
[2017-12-09] MEDS: FLUTICASONE 100 MCG/VILANTEROL 25 MCG INHALER INH SCH (09:16)
[2017-12-09] MEDS: SODIUM CHLORIDE 0.9% FLUSH 10 ML FLUSH IV FLUSH SCH (09:16)
== END 2017-12-09 09:35 | disposition home or self-care (01) | DRG 189 ==
LOC: PHED 15:09 → PHEDA 18:51 → PHICU 21:28
PROVIDERS: ADMIT Hospitalist; ATTEND Hospitalist
DX: J96.00 Acute respiratory failure, unspecified whether with hypoxia or hypercapnia (principal); N17.9 Acute kidney failure, unspecified; J43.9 Emphysema, unspecified; G89.29 Other chronic pain; Z79.891 Long term (current) use of opiate analgesic; F17.210 Nicotine dependence, cigarettes, uncomplicated; I10 Essential (primary) hypertension; F14.10 Cocaine abuse, uncomplicated; F12.10 Cannabis abuse, uncomplicated; G47.33 Obstructive sleep apnea (adult) (pediatric); R41.82 Altered mental status, unspecified; H54.8 Legal blindness, as defined in USA; B19.20 Unspecified viral hepatitis C without hepatic coma
CPT/HCPCS: 36600; 80048; 80053; 80307; 81001; 82805; 85025; 94150; 96361; 96374; J2310; J7030; J7060

== ENCOUNTER 2017-12-29 19:00 | Inpatient (IN) | payer MEDICARE, MEDICAID ==
[~2017-12-29] VITALS: Ht 172.7 cm; Wt 98.6 kg
[~2017-12-29 19:00] MED LIST changes: -CELE200C PO; -MECL-62 PO; +TRIL150T PO
[2017-12-29 19:34] VITALS: BP 150/89; PULSE 95; RESP 18; TEMP 99; O2SAT 97
[2017-12-29 21:44] VITALS: BP 147/85; PULSE 77; RESP 18; O2SAT 98
[2017-12-29 22:43] LABS: AUTOMATED NEUTROPHIL # 3.8 TH/MM3 (1.8-7.7); BASOPHIL # 0.1 TH/MM3 (0-0.2); BASOPHIL % 1.1 % (0.0-2.0); EOSINOPHIL # 1.1 TH/MM3 (0-0.4); EOSINOPHIL % 12.1 % (0.0-4.0); HEMOGLOBIN 14.8 GM/DL (13.0-17.0); LYMPH % 37.5 % (9.0-44.0); LYMPHOCYTE # 3.5 TH/MM3 (1.0-4.8); MEAN CELL VOLUME 85.7 FL (80.0-100.0); MEAN CORPUSCULAR HEMOGLOBIN 29.5 PG (27.0-34.0); MEAN CORPUSCULAR HGB CONC 34.5 % (32.0-36.0); MEAN PLATELET VOLUME 7.5 FL (7.0-11.0); MONO % 8.7 % (0.0-8.0); MONOCYTE # 0.8 TH/MM3 (0-0.9); NEUT % 40.6 % (16.0-70.0); PLATELET COUNT 215 TH/MM3 (150-450); RED BLOOD COUNT 5.02 MIL/MM3 (4.50-5.90); RED CELL DISTRIBUTION WIDTH 13.6 % (11.6-17.2); WHITE BLOOD COUNT 9.3 TH/MM3 (4.0-11.0)
[2017-12-29 23:04] LABS: ALBUMIN 3.7 GM/DL (3.4-5.0); AST (GOT) 15 U/L (15-37); BICARBONATE 27.7 MEQ/L (21.0-32.0); BLOOD UREA NITROGEN 12 MG/DL (7-18); CHLORIDE 104 MEQ/L (98-107); CREATININE 1.21 MG/DL (0.60-1.30); GLOMERULAR FILTRATION RATE 62 ML/MIN (>89); GLUCOSE,RANDOM 105 MG/DL (74-106); SODIUM (NA) 139 MEQ/L (136-145)
[2017-12-29 23:15] LABS: ALKALINE PHOSPHATASE 90 U/L (45-117); ALT (GPT) 30 U/L (12-78); TOTAL BILIRUBIN ADULT 0.2 MG/DL (0.2-1.0); TOTAL PROTEIN 7.5 GM/DL (6.4-8.2)
--- NOTE | 2017-12-29 23:17 | PD ---
HPI Chief Complaint: Psychiatric Symptoms Time Seen by Provider: 21:32 Travel History International Travel<30 days: No Contact w/Intl Traveler<30days: No Traveled to known affect area: No History of Present Illness HPI 52-year-old male came to the emergency room with history of overwhelming sense of depression and suicidal ideation. He says that he wants to overdose on his medications. Patient brought himself in voluntarily. He does have history of psych disorder. He ran out of his medications a few weeks ago. He has not attempted anything yet. Vital signs are stable. Patient is awake and answering questions appropriately he is legally blind. Patient says he abused cocaine about 3 days ago. PFSH Past Medical History Narrative Medical List of his past medical, surgical, social and family history is reviewed from the nursing note. Hx Anticoagulant Therapy: No Autoimmune Disease: No Anxiety: Yes Depression: Yes (since 13 years of age) Heart Rhythm Problems: No Cancer: No High Cholesterol: No Chemotherapy: No Chest Pain: No Congestive Heart Failure: No COPD: Yes Cerebrovascular Accident: No Diabetes: No Diminished Hearing: No Endocrine: No Gastrointestinal Disorders: Yes GERD: Yes Genitourinary: No Hepatitis: Yes (HEP C IN REMISSION ) Hiatal Hernia: No Hypertension: Yes Immune Disorder: No Kidney Stones: No Musculoskeletal: No Neurologic: No Psychiatric: Yes Reproductive: No Respiratory: Yes Immunizations Current: Yes Radiation Therapy: No Renal Failure: No Sickle Cell Disease: No Sleep Apnea: Yes (C PAP) Thyroid Disease: No Ulcer: No Tetanus Vaccination: < 5 Years Influenza Vaccination: Yes Past Surgical History Abdominal Surgery: No AICD: No Arteriovenous Shunt: No Cardiac Surgery: No Ear Surgery: No Endocrine Surgery: No Eye Surgery: No Genitourinary Surgery: No Gynecologic Surgery: No Insulin Pump: No Joint Replacement: No Oral Surgery: No Thoracic Surgery: No Social History Alcohol Use: Yes (ONCE EVERY 1-2 WEEKS) Tobacco Use: Yes Substance Use: Yes (CRACK) Allergies-Medications (Allergen,Severity, Reaction): Coded Allergies: *MDRO Multi-Drug Resistant Organism (Verified Adverse Reaction, Unknown, ) 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 Reported Meds & Prescriptions Reported Meds & Active Scripts Active Spiriva Handihaler (Tiotropium Inh) 18 Mcg Cap 18 Mcg INH DAILY 1 capsule = 18 mcg Ventolin Hfa 18 GM Inh (Albuterol Sulfate) 90 Mcg/Act Aer 2 Puff INH Q4-6H PRN Breo Ellipta Inh (Fluticasone/Vilanterol) 100-25 Mcg/Act Inh 1 Puff INH DAILY Use daily at the same time. Reported Trileptal (Oxcarbazepine) 150 Mg Tab Unknown Dose PO BID Ramipril 5 Mg Cap 5 Mg PO DAILY Remeron (Mirtazapine) 15 Mg Tab 15 Mg PO HS Carvedilol 25 Mg Tab 25 Mg PO BID Omeprazole 20 Mg Tab 20 Mg PO DAILY Amlodipine (Amlodipine Besylate) 10 Mg Tab 10 Mg PO HS Narrative Medication List of his home medications reviewed from the nursing note. Review of Systems Except as stated in HPI: all other systems reviewed are Neg Psychiatric: Positive: Depression Physical Exam Narrative GENERAL: Awake, alert, legally blind SKIN: Focused skin assessment warm/dry. HEAD: Atraumatic. Normocephalic. EYES: Pupils equal and round. No scleral icterus. No injection or drainage. ENT: No nasal bleeding or discharge. Mucous membranes pink and moist. NECK: Trachea midline. No JVD. CARDIOVASCULAR: Regular rate and rhythm. No murmur appreciated. RESPIRATORY: No accessory muscle use. Clear to auscultation. Breath sounds equal bilaterally. GASTROINTESTINAL: Abdomen soft, non-tender, nondistended. Hepatic and splenic margins not palpable. MUSCULOSKELETAL: No obvious deformities. No clubbing. No cyanosis. No edema. NEUROLOGICAL: Awake and alert. No obvious cranial nerve deficits. Motor grossly within normal limits. Normal speech. PSYCHIATRIC: Appropriate mood and affect; insight and judgment normal. Data Data Last Documented VS Vital Signs Date Time Temp Pulse Resp B/P (MAP) Pulse Ox O2 Delivery O2 Flow Rate FiO2 12/30/17 08:00 98.4 74 16 132/77 (95) 99 12/30/17 02:46 Room Air Orders Orders Complete Blood Count With Diff (12/29/17 19:36) Comprehensive Metabolic Panel (12/29/17 19:36) Thyroid Stimulating Hormone (12/29/17 19:36) Psych Screen (12/29/17 19:36) Drug Screen, Random Urine (12/29/17 19:36) Alcohol (Ethanol) (12/29/17 19:36) Diet Regular Basic (12/30/17 Breakfast) Admit Order (Ed Use Only) (12/30/17 ) Admit To Inpatient Psych (12/30/17 ) Code Status (12/30/17 11:53) Vital Signs (Adult) IDALIA.Q12H.E (12/30/17 11:53) Activity Oob Ad Keyla (12/30/17 11:53) Level Of Observation (Psych) (12/30/17 11:53) Acetaminophen (Tylenol) (12/30/17 12:00) Magnesium Hydroxide Liq (Milk Of Magnesi (12/30/17 12:00) Al-Mag Hy-Si 40-40-4 Mg/Ml Liq (Mag-Al P (12/30/17 12:00) Basic Metabolic Panel (Bmp) (12/31/17 06:00) Lipid Profile (12/31/17 06:00) Hemoglobin (Hgb) A1c (12/31/17 06:00) Electrocardiogram (12/31/17 ) Labs Laboratory Tests Test 12/29/17 16:25 12/29/17 21:22 Free Thyroxine 0.82 NG/DL White Blood Count 9.3 TH/MM3 Red Blood Count 5.02 MIL/MM3 Hemoglobin 14.8 GM/DL Hematocrit 43.0 % Mean Corpuscular Volume 85.7 FL Mean Corpuscular Hemoglobin 29.5 PG Mean Corpuscular Hemoglobin Concent 34.5 % Red Cell Distribution Width 13.6 % Platelet Count 215 TH/MM3 Mean Platelet Volume 7.5 FL Neutrophils (%) (Auto) 40.6 % Lymphocytes (%) (Auto) 37.5 % Monocytes (%) (Auto) 8.7 % Eosinophils (%) (Auto) 12.1 % Basophils (%) (Auto) 1.1 % Neutrophils # (Auto) 3.8 TH/MM3 Lymphocytes # (Auto) 3.5 TH/MM3 Monocytes # (Auto) 0.8 TH/MM3 Eosinophils # (Auto) 1.1 TH/MM3 Basophils # (Auto) 0.1 TH/MM3 CBC Comment DIFF FINAL Differential Comment Blood Urea Nitrogen 12 MG/DL Creatinine 1.21 MG/DL Random Glucose 105 MG/DL Total Protein 7.5 GM/DL Albumin 3.7 GM/DL Calcium Level 9.0 MG/DL Alkaline Phosphatase 90 U/L Aspartate Amino Transf (AST/SGOT) 15 U/L Alanine Aminotransferase (ALT/SGPT) 30 U/L Total Bilirubin 0.2 MG/DL Sodium Level 139 MEQ/L Potassium Level 3.4 MEQ/L Chloride Level 104 MEQ/L Carbon Dioxide Level 27.7 MEQ/L Anion Gap 7 MEQ/L Estimat Glomerular Filtration Rate 62 ML/MIN Thyroid Stimulating Hormone 3rd Gen 5.820 uIU/ML Urine Opiates Screen NEG Urine Barbiturates Screen NEG Urine Amphetamines Screen NEG Urine Benzodiazepines Screen NEG Urine Cocaine Screen POS Urine Cannabinoids Screen NEG Ethyl Alcohol Level LESS THAN 3 MG/DL MDM Medical Decision Making Medical Screen Exam Complete: Yes Emergency Medical Condition: Yes Medical Record Reviewed: Yes Differential Diagnosis Major depression, suicidal ideation, cocaine abuse Narrative Course 11:17 PM CBC and urine drug screen is back. Urine drug screen is positive for cocaine. Awaiting for the chemistry. Once patient is medically cleared he will require to go to psych screen. I have black acted him. Procedures EKG Prior to Arrival: Orestes Le MD Dec 29, 2017 23:17
[2017-12-30 02:46] VITALS: BP 133/77; PULSE 73; RESP 18; TEMP 99; O2SAT 97
[2017-12-30 08:00] VITALS: BP 132/77; TEMP 98.4
--- NOTE | 2017-12-30 11:17 | PD ---
History of Present Illness Chief Complaint: Psychiatric Symptoms Time Seen by Provider: 11:00 Travel History International Travel<30 Days: No Contact w/Intl Traveler<30days: No Known affected area: No Legal Status Legal Status: Sourav Act Benjamin Act Signed By: Deepak Benjamin Act Comment: CERTIFICATE OF PROFESSIONAL INITIATING INVOLUNTARY EXAMINATION12/29/17@2200 History of Present Illness: History of Present Illness HPI 52-year-old, single, homeless, legally blind male with reported history of depression and anxiety, record history of substance-induced mood disorder, cocaine abuse, who presented to the emergency room voluntarily reporting history of overwhelming sense of depression and suicidal ideation for the past week. Patient reports that he stopped taking his psychiatric medications only 4 weeks ago after stressors including losing his job and lost his apartment. He has been staying with a friend and told his friend that he wanted to go home and take all his sleeping medication in order to not wake up. He did not make any attempt to harm himself. Noted is that the patient states he continued to take his medications for his blood pressure as well as for his COPD. Patient also has been using cocaine and he reports that he has only been using for the last 4 days. His toxicology is positive for cocaine. Electronic medical record is reviewed. He was admitted to our inpatient psychiatric unit in October [id number] for treatment of substance-induced mood disorder. He was admitted to [facility] November 2017 for acute respiratory failure secondary to drug use. At that time the patient also tested positive for cocaine and had been using narcotic pain medication. Patient is seen in J pod. He is awake, alert and oriented 4. Disheveled appearance. Mood is irritable. Reports feeling depressed, hopeless. Relates in an entitled and critical manner. His speech is clear, logical, of normal rate and tone. Denies any hallucinations, delusions or paranoia. Patient reports decreased level of energy with increased amount of sleep, not caring for himself. Continues to report suicidal ideation with intent of taking his sleeping pills. Patient is requesting inpatient psychiatric admission to get back on his psychiatric medications. PFSH Past Medical History Hx Anticoagulant Therapy: No Autoimmune Disease: No Anxiety: Yes Depression: Yes (since 13 years of age) Heart Rhythm Problems: No Cancer: No High Cholesterol: No Chemotherapy: No Chest Pain: No Congestive Heart Failure: No COPD: Yes Cerebrovascular Accident: No Diabetes: No Diminished Hearing: No Endocrine: No Gastrointestinal Disorders: Yes GERD: Yes Genitourinary: No Hepatitis: Yes (HEP C IN REMISSION ) Hiatal Hernia: No Hypertension: Yes Immune Disorder: No Kidney Stones: No Musculoskeletal: No Neurologic: No Psychiatric: Yes Reproductive: No Respiratory: Yes Immunizations Current: Yes Radiation Therapy: No Renal Failure: No Sickle Cell Disease: No Sleep Apnea: Yes (C PAP) Thyroid Disease: No Ulcer: No Tetanus Vaccination: < 5 Years Influenza Vaccination: Yes Past Surgical History Abdominal Surgery: No AICD: No Arteriovenous Shunt: No Cardiac Surgery: No Ear Surgery: No Endocrine Surgery: No Eye Surgery: No Genitourinary Surgery: No Gynecologic Surgery: No Insulin Pump: No Joint Replacement: No Oral Surgery: No Thoracic Surgery: No Psychiatric History Psychiatric History Hx Psychiatric Treatment: First psychiatric admission reported at age 13 for symptoms of depression. Has had a few other admissions since that with the last being in 2017. Attends [facility] outpatient treatment. One previous suicide attempt at age 14 by overdosing on his sleeping medication. History of Inpatient Treatment: Yes Guns or firearms in home: No Social History Single, homeless, unemployed male. Hx Alcohol Use: Yes (ONCE EVERY 1-2 WEEKS) Hx Tobacco Use: Yes Hx Substance Use: Yes (CRACK) Substance Use Type: Crack, Cocaine Other Substances Used: Reports a 3-4 day cocaine binge Hx of Substance Use Treatment: No Family Psychiatric History Negative Allergies-Medications (Allergen,Severity, Reaction): Coded Allergies: *MDRO Multi-Drug Resistant Organism (Verified Adverse Reaction, Unknown, ) 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 Reported Meds & Prescriptions Reported Meds & Active Scripts Active Spiriva Handihaler (Tiotropium Inh) 18 Mcg Cap 18 Mcg INH DAILY 1 capsule = 18 mcg Ventolin Hfa 18 GM Inh (Albuterol Sulfate) 90 Mcg/Act Aer 2 Puff INH Q4-6H PRN Breo Ellipta Inh (Fluticasone/Vilanterol) 100-25 Mcg/Act Inh 1 Puff INH DAILY Use daily at the same time. Reported Trileptal (Oxcarbazepine) 150 Mg Tab Unknown Dose PO BID Ramipril 5 Mg Cap 5 Mg PO DAILY Remeron (Mirtazapine) 15 Mg Tab 15 Mg PO HS Carvedilol 25 Mg Tab 25 Mg PO BID Omeprazole 20 Mg Tab 20 Mg PO DAILY Amlodipine (Amlodipine Besylate) 10 Mg Tab 10 Mg PO HS Review of Systems Constitutional: COMPLAINS OF: Fatigue Eyes: COMPLAINS OF: Vision loss (Legally blind) Psychiatric: COMPLAINS OF: Depression, Suicidal Ideation Mental Status Examination Appearance: Disheveled Consciousness: Alert Orientation: x4 Motor Activity: Normal gait Speech: Unremarkable Language: Adequate Fund of Knowledge: Adequate Attention and Concentration: Adequate Memory: Unremarkable Mood: Appropriate, Sad, Irritable Affect: Appropriate Thought Process & Associations: Intact, Logical, Goal directed Thought Content: Appropriate Hallucination Type: None Delusion Type: None Suicidal Ideation: Yes Suicidal Plan: Yes Suicidal Intention: No Homicidal Ideation: No Homicidal Plan: No Homicidal Intention: No Insight: Poor Judgment: Impulsive MDM Medical Decision Making Medical Record Reviewed: Yes Assessment/Plan 52-year-old, single, homeless, legally blind male with reported history of depression and anxiety, record history of substance-induced mood disorder, cocaine abuse, who presented to the emergency room voluntarily reporting history of overwhelming sense of depression and suicidal ideation for the past week. Patient reports that he stopped taking his psychiatric medications only 4 weeks ago after stressors including losing his job and lost his apartment. He has been staying with a friend and told his friend that he wanted to go home and take all his sleeping medication in order to not wake up. He did not make any attempt to harm himself. Noted is that the patient states he continued to take his medications for his blood pressure as well as for his COPD. Patient also has been using cocaine and he reports that he has only been using for the last 4 days. His toxicology is positive for cocaine. Patient continues to endorse symptoms of depression as well as suicidal ideation with plan to overdose on his sleeping medication which she has at home. Patient at this time will be admitted to inpatient psychiatry for further evaluation, for safety, stabilization. Orders Orders Complete Blood Count With Diff (12/29/17 19:36) Comprehensive Metabolic Panel (12/29/17 19:36) Thyroid Stimulating Hormone (12/29/17 19:36) Psych Screen (12/29/17 19:36) Drug Screen, Random Urine (12/29/17 19:36) Alcohol (Ethanol) (12/29/17 19:36) Diet Regular Basic (12/30/17 Breakfast) Results Vital Signs Date Time Temp Pulse Resp B/P (MAP) Pulse Ox O2 Delivery O2 Flow Rate FiO2 12/30/17 02:46 99.0 73 18 133/77 (95) 97 Room Air 12/29/17 21:44 77 18 147/85 (105) 98 Room Air 12/29/17 19:34 99.0 95 18 150/89 (109) 97 Laboratory Tests Test 12/29/17 21:22 White Blood Count 9.3 Red Blood Count 5.02 Hemoglobin 14.8 Hematocrit 43.0 Mean Corpuscular Volume 85.7 Mean Corpuscular Hemoglobin 29.5 Mean Corpuscular Hemoglobin Concent 34.5 Red Cell Distribution Width 13.6 Platelet Count 215 Mean Platelet Volume 7.5 Neutrophils (%) (Auto) 40.6 Lymphocytes (%) (Auto) 37.5 Monocytes (%) (Auto) 8.7 Eosinophils (%) (Auto) 12.1 Basophils (%) (Auto) 1.1 Neutrophils # (Auto) 3.8 Lymphocytes # (Auto) 3.5 Monocytes # (Auto) 0.8 Eosinophils # (Auto) 1.1 Basophils # (Auto) 0.1 CBC Comment DIFF FINAL Differential Comment Blood Urea Nitrogen 12 Creatinine 1.21 Random Glucose 105 Total Protein 7.5 Albumin 3.7 Calcium Level 9.0 Alkaline Phosphatase 90 Aspartate Amino Transf (AST/SGOT) 15 Alanine Aminotransferase (ALT/SGPT) 30 Total Bilirubin 0.2 Sodium Level 139 Potassium Level 3.4 Chloride Level 104 Carbon Dioxide Level 27.7 Anion Gap 7 Estimat Glomerular Filtration Rate 62 Thyroid Stimulating Hormone 3rd Gen 5.820 Urine Opiates Screen NEG Urine Barbiturates Screen NEG Urine Amphetamines Screen NEG Urine Benzodiazepines Screen NEG Urine Cocaine Screen POS Urine Cannabinoids Screen NEG Ethyl Alcohol Level LESS THAN 3 Diagnosis Primary Impression: Drug-induced mood disorder Additional Impression: Cocaine abuse Admitting Information Admitting Physician Requests: Admit Problem Qualifiers Angie Muro Dec 30, 2017 11:17
[2017-12-30] MEDS ORDERED: ALUMINUM/MAGNESIUM/SIMETH 30 ML CUP PO PRN (12:00)
[2017-12-30] MEDS ORDERED: ACETAMINOPHEN 325 MG TAB PO PRN (12:00)
[2017-12-30] MEDS ORDERED: MAGNESIUM HYDROXIDE SUSP 30 ML CUP PO PRN (12:00)
[2017-12-30] MEDS ORDERED: ALBUTEROL SULFATE 90 MCG/ACT HFA 8 GM INHALER INH PRN (16:15)
[2017-12-30] MEDS: RAMIPRIL 5 MG CAP PO SCH (16:15)
[2017-12-30] MEDS: TIOTROPIUM BROMIDE 18 MCG INH INH SCH (16:15)
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
[2017-12-30] MEDS ORDERED: POTASSIUM CHLORIDE 20 MEQ CONTROLLED RELEASE TAB PO ONE (16:30)
[2017-12-30 16:33] VITALS: BP 155/89; PULSE 63; RESP 18; TEMP 97.6; O2SAT 98
[2017-12-30] MEDS: OXcarbazepine 600 MG TAB PO SCH ×2 (17:56→21:29)
[2017-12-30] MEDS: FLUTICASONE 100 MCG/VILANTEROL 25 MCG INHALER INH SCH (17:56)
[2017-12-30] MEDS: PANTOPRAZOLE SOD 20 MG DELAYED RELEASE TAB PO SCH (17:56)
[2017-12-30] MEDS: DULoxetine HCl DR 30 MG CAP PO SCH (21:28)
[2017-12-30] MEDS: MIRTAZAPINE 15 MG TAB PO SCH (21:29)
[2017-12-31 06:37] VITALS: BP 108/59; PULSE 65; RESP 15; TEMP 97.4; O2SAT 99
[2017-12-31 07:08] LABS: BICARBONATE 27.9 MEQ/L (21.0-32.0); BLOOD UREA NITROGEN 9 MG/DL (7-18); CALCIUM 8.9 MG/DL (8.5-10.1); CHLORIDE 104 MEQ/L (98-107); CREATININE 1.04 MG/DL (0.60-1.30); GLOMERULAR FILTRATION RATE 74 ML/MIN (>89); GLUCOSE,RANDOM 91 MG/DL (74-106); MAGNESIUM 2.1 MG/DL (1.5-2.5); SODIUM (NA) 138 MEQ/L (136-145)
[2017-12-31 07:10] LABS: CHOLESTEROL 182 MG/DL (120-200); TRIGLYCERIDES 159 MG/DL (42-150)
[2017-12-31 07:12] LABS: CHOLESTEROL/ HDL RATIO 4.07 RATIO; HDL CHOLESTEROL 44.7 MG/DL (40.0-60.0); LDL CHOLESTEROL 106 MG/DL (0-99)
[2017-12-31] MEDS: PANTOPRAZOLE SOD 20 MG DELAYED RELEASE TAB PO SCH (08:58)
[2017-12-31] MEDS: OXcarbazepine 600 MG TAB PO SCH ×4 (08:58→20:59)
[2017-12-31] MEDS: DULoxetine HCl DR 30 MG CAP PO SCH ×2 (08:58→20:58)
[2017-12-31] MEDS: FLUTICASONE 100 MCG/VILANTEROL 25 MCG INHALER INH SCH (08:58)
[2017-12-31] MEDS: TIOTROPIUM BROMIDE 18 MCG INH INH SCH (09:00)
[2017-12-31] MEDS: RAMIPRIL 5 MG CAP PO SCH (09:01)
--- NOTE | 2017-12-31 10:22 | HHI.PYPN ---
Subjective Chief Complaint: Depression, SI Remarks Patient seen and examined. Chart reviewed. Case discussed with nursing staff. Patient somewhat seclusive to room per nursing but no behavioral problem. Case discussed with counselor. On my examination today, the patient remains fairly dysphoric and says that his mood remains depressed but is perhaps a little better. He remains fairly anhedonic and withdrawn. He denies any suicidal ideation today however. He denies any audiovisual hallucinations or other psychotic symptoms. He denies any side effects from medications. No acute physical complaints. Review of Systems Except as stated in HPI: all other systems reviewed are Neg Mental Status Examination Appearance: Appropriate Consciousness: Alert Orientation: x4 Motor Activity: Other (no abnormal motor movements noted) Speech: Unremarkable Language: Adequate Fund of Knowledge: Adequate Attention and Concentration: Adequate Memory: Unremarkable Mood: Other (remains depressed) Affect: Blunt Thought Process & Associations: Intact, Logical, Goal directed, Linear Thought Content: Appropriate Hallucination Type: None Delusion Type: None Suicidal Ideation: No Suicidal Plan: No Suicidal Intention: No Homicidal Ideation: No Homicidal Plan: No Homicidal Intention: No Insight: Fair Judgment: Impulsive Results Labs Test 12/31/17 05:57 Blood Urea Nitrogen 9 MG/DL Creatinine 1.04 MG/DL Random Glucose 91 MG/DL Calcium Level 8.9 MG/DL Magnesium Level 2.1 MG/DL Sodium Level 138 MEQ/L Potassium Level 4.1 MEQ/L Chloride Level 104 MEQ/L Carbon Dioxide Level 27.9 MEQ/L Anion Gap 6 MEQ/L Estimat Glomerular Filtration Rate 74 ML/MIN Triglycerides Level 159 MG/DL Cholesterol Level 182 MG/DL LDL Cholesterol 106 MG/DL HDL Cholesterol 44.7 MG/DL Cholesterol/HDL Ratio 4.07 RATIO Labs reviewed. Hypokalemia resolved. GFR improved. Vitals/IOs Vital Signs Date Time Temp Pulse Resp B/P (MAP) Pulse Ox O2 Delivery O2 Flow Rate FiO2 12/31/17 06:37 97.4 65 15 108/59 (75) 99 12/30/17 02:46 Room Air Assessment & Plan Problem List: (1) Depression ICD Codes: F32.9 - Major depressive disorder, single episode, unspecified Status: Acute (2) Cocaine abuse ICD Codes: F14.10 - Cocaine abuse, uncomplicated Status: Acute Assessment & Plan Continue Cymbalta as ordered along with Remeron and Trileptal. Could consider further titration of Cymbalta or Remeron to target ongoing low mood. Awaiting hospitalist consultation. I do note that patient's blood pressure has been on the low side even though carvedilol has been held and so it is unclear whether he really needs to be on 3 different antihypertensives. I will defer to the hospitalist in this regard. I encouraged participation in groups and unit activities. Continue other medications and care as ordered. Justification for Cont. Inpt. Monitoring for impairment in safety. Risk for decompensation in less restrictive environment. Discharge Planning Pending psychiatric stabilization. Possible sober living placement. Request HC Surrog/Guard Advoc?: No Problem Qualifiers (1) Depression: Qualified Codes: F33.1 - Major depressive disorder, recurrent, moderate Mk Villagomez MD Dec 31, 2017 10:22
--- NOTE | 2017-12-31 12:58 | EKG ---
Date Performed: 12/31/2017 Time Performed: 10:24:39 PTAGE: 52 years EKG: Sinus rhythm NORMAL ECG PREVIOUS TRACING : 11/29/2017 07.57 DOCTOR: Nate Mantilla Interpretating Date/Time 12/31/2017 12:58:14
--- NOTE | 2017-12-31 16:43 | PD.CONS ---
HPI Service [facility] Hospitalists Consult Requested By Dr. Villagomez Reason for Consult "Pt with cocaine use on carvedilol, reportedly Rx'd by horse shoer Dr. Thomas. Should pt be on beta sarai given cocaine use? Please also assist with medical management" Primary Care Physician No Primary Care Physician Diagnoses: (1) Cocaine abuse (2) HTN (hypertension) History of Present Illness The patient is a 52-year-old male with history of hypertension and cocaine abuse who presented to the emergency department complaining of depression and suicidal ideation. He is currently admitted to the inpatient psychiatry department. Hospitalist consultation was requested for medical management and also to review his need for carvedilol. The patient denies chest pain or dyspnea. Denies palpitations. No lightheadedness or dizziness. He states that he has been on carvedilol for "a long time". He states that he was incarcerated and was not given his Celexa. At that time his blood pressure increased significantly. He was started on atenolol, which controlled his blood pressure adequately. After a while his horse shoer switched him to carvedilol. Ramipril and amlodipine were subsequently added for improved blood pressure control. Patient continues to use cocaine, most recently 3 days ago. Review of Systems Constitutional: DENIES: Fever, Chills, Night Sweats Eyes: DENIES: Blurred vision, Vision loss Ears, nose, mouth, throat: DENIES: Hearing loss Respiratory: DENIES: Cough, Wheezing, Sputum production, Shortness of breath Cardiovascular: DENIES: Chest pain, Palpitations, Dyspnea on Exertion, Lower Extremity Edema Gastrointestinal: DENIES: Abdominal pain, Constipation, Diarrhea, Nausea, Vomiting Genitourinary: DENIES: Urinary frequency, Urinary incontinence, Urgency, Hematuria, Dysuria, Nocturia Musculoskeletal: DENIES: Joint pain, Muscle aches Integumentary: DENIES: Pruritus, Rash Hematologic/lymphatic: DENIES: Bruising Neurologic: DENIES: Headache Past Family Social History Allergies: Coded Allergies: *MDRO Multi-Drug Resistant Organism (Verified Adverse Reaction, Unknown, ) 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 Past Medical History Hypertension Anxiety/depression History of hepatitis C GERD Sleep apnea COPD Past Surgical History Denies Reported Medications Spiriva Handihaler (Tiotropium Inh) 18 Mcg Cap 18 Mcg INH DAILY 1 capsule = 18 mcg Ventolin Hfa 18 GM Inh (Albuterol Sulfate) 90 Mcg/Act Aer 2 Puff INH Q4-6H PRN Breo Ellipta Inh (Fluticasone/Vilanterol) 100-25 Mcg/Act Inh 1 Puff INH DAILY Use daily at the same time. Trileptal (Oxcarbazepine) 150 Mg Tab Unknown Dose PO BID Ramipril 5 Mg Cap 5 Mg PO DAILY Remeron (Mirtazapine) 15 Mg Tab 15 Mg PO HS Carvedilol 25 Mg Tab 25 Mg PO BID Omeprazole 20 Mg Tab 20 Mg PO DAILY Amlodipine (Amlodipine Besylate) 10 Mg Tab 10 Mg PO HS Family History Denies significant family medical history Social History Quit smoking 6 months ago. Had smoked 1 pack per day prior to that. Occasionally drinks 4 beers in a day, but not regularly. Admits to smoking crack cocaine. Denies IV drug use. Physical Exam Vital Signs Vital Signs Date Time Temp Pulse Resp B/P (MAP) Pulse Ox O2 Delivery O2 Flow Rate FiO2 12/31/17 06:37 97.4 65 15 108/59 (75) 99 Physical Exam GENERAL: Well-nourished, well-developed male in no acute distress. HEENT: Normocephalic, atraumatic. Pupils equal, round and reactive. Extraocular movements intact. No scleral icterus. No injection or drainage. Oropharynx is clear. Mucous membranes are moist. CARDIOVASCULAR: Regular rate and rhythm without murmurs, gallops, or rubs. RESPIRATORY: Clear to auscultation. No wheezes, rales, or rhonchi. Breathing is non-labored. GASTROINTESTINAL: Abdomen soft, non-tender, nondistended. EXTREMITIES: No lower extremity edema. No calf tenderness. PSYCH: Alert and oriented x 3. NEURO: No focal deficits noted. Speech is normal. Laboratory Laboratory Tests Test 12/31/17 05:57 Blood Urea Nitrogen 9 Creatinine 1.04 Random Glucose 91 Calcium Level 8.9 Magnesium Level 2.1 Sodium Level 138 Potassium Level 4.1 Chloride Level 104 Carbon Dioxide Level 27.9 Anion Gap 6 Estimat Glomerular Filtration Rate 74 Triglycerides Level 159 Cholesterol Level 182 LDL Cholesterol 106 HDL Cholesterol 44.7 Cholesterol/HDL Ratio 4.07 Result Diagram: 12/29/17212112/31/17 0557 Assessment and Plan Assessment and Plan 1. Depression/anxiety, substance-induced mood disorder: Management per psychiatry. 2. Cocaine abuse: Patient has been counseled. He is well aware of the risks involved and states that he has discussed this with his horse shoer as well. At this time carvedilol is on hold and patient's blood pressure is borderline low. Will defer restarting the carvedilol to the patient's horse shoer as outpatient. If significant concern while inpatient, could consult Dr. Thomas for further recommendations. 3. Hypertension: Patient's blood pressures are actually running low at this time. Hold carvedilol. Continue ramipril, amlodipine. 4. COPD: Stable. Continue Spiriva, Brio Ellipta. [facility] will sign off at this time. Reconsult if needed. Carlton Sinha MD Dec 31, 2017 16:43
[2017-12-31 20:46] LABS: HEMOGLOBIN A1C 5.6 % (4.3-6.0)
[2017-12-31] MEDS: MIRTAZAPINE 15 MG TAB PO SCH (20:59)
[2018-01-01 05:28] VITALS: BP 149/90; PULSE 92; RESP 18; TEMP 97.7; O2SAT 99
[2018-01-01] MEDS: TIOTROPIUM BROMIDE 18 MCG INH INH SCH (09:00)
[2018-01-01] MEDS: PANTOPRAZOLE SOD 20 MG DELAYED RELEASE TAB PO SCH (09:12)
[2018-01-01] MEDS: OXcarbazepine 600 MG TAB PO SCH ×4 (09:12→21:17)
[2018-01-01] MEDS: RAMIPRIL 5 MG CAP PO SCH (09:12)
[2018-01-01] MEDS: DULoxetine HCl DR 30 MG CAP PO SCH (09:12)
[2018-01-01] MEDS: FLUTICASONE 100 MCG/VILANTEROL 25 MCG INHALER INH SCH (09:13)
--- NOTE | 2018-01-01 12:58 | HHI.PYPN ---
Subjective Chief Complaint: Depression, SI Remarks Patient seen and examined. Chart reviewed. Case discussed with nursing staff. On my examination today, patient a little more dysphoric and withdrawn today. He denies suicidal ideation however. He reports that he [facility] and [facility] will [facility] bed for him by the end of next week. Sleeping well. He is agreeable to titration of Cymbalta to target low mood. No side effects from medications. No physical complaints. Review of Systems Except as stated in HPI: all other systems reviewed are Neg Mental Status Examination Appearance: Appropriate Consciousness: Alert Orientation: x4 Motor Activity: Other (no abnormal motor movements noted) Speech: Unremarkable Language: Adequate Fund of Knowledge: Adequate Attention and Concentration: Adequate Memory: Unremarkable Mood: Other (Depressed) Affect: Blunt (Somewhat more dysphoric today) Thought Process & Associations: Intact, Logical, Goal directed, Linear Thought Content: Appropriate Hallucination Type: None Delusion Type: None Suicidal Ideation: No Suicidal Plan: No Suicidal Intention: No Homicidal Ideation: No Homicidal Plan: No Homicidal Intention: No Insight: Fair Judgment: Impulsive Results Labs Labs reviewed Vitals/IOs Vital Signs Date Time Temp Pulse Resp B/P (MAP) Pulse Ox O2 Delivery O2 Flow Rate FiO2 01/01/18 05:28 97.7 92 18 149/90 (109) 99 12/30/17 02:46 Room Air Intake and Output 01/01/18 01/01/18 01/02/18 08:00 16:00 00:00 Intake Total 480 ml Balance 480 ml Assessment & Plan Problem List: (1) Depression ICD Codes: F32.9 - Major depressive disorder, single episode, unspecified Status: Acute (2) Cocaine abuse ICD Codes: F14.10 - Cocaine abuse, uncomplicated Status: Acute Assessment & Plan Titrate Cymbalta to 90mg total daily dose to target dysphoria; I will consolidate the dose of this medication to qAM. Continue Remeron and Trileptal as ordered. Hospitalist input noted and appreciated. Continue other medications and care as ordered. Justification for Cont. Inpt. Medication changes. Risk for decompensation in less restrictive environment. Discharge Planning Possible discharge to sober living sometime next week. Case discussed with counselor. Request HC Surrog/Guard Advoc?: No Problem Qualifiers (1) Depression: Qualified Codes: F33.1 - Major depressive disorder, recurrent, moderate Mk Villagomez MD Jan 01, 2018 12:58
[2018-01-01] MEDS ORDERED: DULoxetine HCl DR 60 MG CAP PO ONE (13:00)
[2018-01-01 15:15] VITALS: BP 167/103; PULSE 86
[2018-01-01] MEDS: cloNIDine HCL 0.1 MG TAB PO PRN (15:20)
[2018-01-01 17:00] VITALS: BP 158/94; PULSE 74
[2018-01-01 17:40] VITALS: BP 158/90; PULSE 74
[2018-01-01 17:52] VITALS: BP 168/107; PULSE 89; RESP 17; TEMP 98; O2SAT 100
[2018-01-01] MEDS: MIRTAZAPINE 15 MG TAB PO SCH (21:17)
[2018-01-02 06:05] VITALS: BP 145/92; PULSE 83; RESP 18; TEMP 97.6; O2SAT 95
[2018-01-02] MEDS: TIOTROPIUM BROMIDE 18 MCG INH INH SCH (09:00)
[2018-01-02] MEDS: FLUTICASONE 100 MCG/VILANTEROL 25 MCG INHALER INH SCH (09:06)
[2018-01-02] MEDS: RAMIPRIL 5 MG CAP PO SCH (09:06)
[2018-01-02] MEDS: OXcarbazepine 600 MG TAB PO SCH ×4 (09:06→21:30)
[2018-01-02] MEDS: PANTOPRAZOLE SOD 20 MG DELAYED RELEASE TAB PO SCH (09:06)
[2018-01-02] MEDS: DULoxetine HCl DR 30 MG CAP PO SCH (09:06)
--- NOTE | 2018-01-02 13:53 | HHI.PYPN ---
Subjective Chief Complaint: Depression, SI Remarks Patient seen and examined with nurse. Chart reviewed. Case discussed with nursing staff. No behavioral issues overnight. On my examination today, the patient seems to be in better spirits. Affect is more full and reactive. He notes that [facility] and so he would like to look into alternative sober living environments, but he is only willing to go to 1 where his service dog can accompany him noting that this is "nonnegotiable." No SI or HI. Denies side effects from medications. No acute physical complaints. Review of Systems Except as stated in HPI: all other systems reviewed are Neg Mental Status Examination Appearance: Appropriate Consciousness: Alert Orientation: x4 Motor Activity: Other (no abnormal motor movements noted) Speech: Unremarkable Language: Adequate Fund of Knowledge: Adequate Attention and Concentration: Adequate Memory: Unremarkable Mood: Other (Mood is improving) Affect: Other (More full and reactive today) Thought Process & Associations: Intact, Logical, Goal directed, Linear Thought Content: Appropriate Hallucination Type: None Delusion Type: None Suicidal Ideation: No Suicidal Plan: No Suicidal Intention: No Homicidal Ideation: No Homicidal Plan: No Homicidal Intention: No Mental Status Exam Remarks Insight and judgment are fair Results Labs Labs reviewed Vitals/IOs Vital Signs Date Time Temp Pulse Resp B/P (MAP) Pulse Ox O2 Delivery O2 Flow Rate FiO2 01/02/18 06:05 97.6 83 18 145/92 (109) 95 12/30/17 02:46 Room Air Assessment & Plan Problem List: (1) Depression ICD Codes: F32.9 - Major depressive disorder, single episode, unspecified Status: Acute (2) Cocaine abuse ICD Codes: F14.10 - Cocaine abuse, uncomplicated Status: Acute Assessment & Plan Continue Cymbalta, Remeron and Trileptal as ordered. Continue to monitor on the inpatient unit. Continue other medications and care as ordered. Justification for Cont. Inpt. Risk for decompensation in less restrictive environment. Discharge Planning Anticipate discharge beginning of next week. Request HC Surrog/Guard Advoc?: No Problem Qualifiers (1) Depression: Qualified Codes: F33.1 - Major depressive disorder, recurrent, moderate Mk Villgaomez MD Jan 02, 2018 13:53
[2018-01-02 17:18] VITALS: BP 135/94; PULSE 92; RESP 18; TEMP 98.2; O2SAT 99
[2018-01-02] MEDS: MIRTAZAPINE 15 MG TAB PO SCH (21:30)
[2018-01-03 06:04] VITALS: BP 133/86; PULSE 89; RESP 18; TEMP 97.6; O2SAT 98
[2018-01-03] MEDS: TIOTROPIUM BROMIDE 18 MCG INH INH SCH (09:00)
[2018-01-03] MEDS: OXcarbazepine 600 MG TAB PO SCH ×4 (10:29→20:53)
[2018-01-03] MEDS: RAMIPRIL 5 MG CAP PO SCH (10:29)
[2018-01-03] MEDS: PANTOPRAZOLE SOD 20 MG DELAYED RELEASE TAB PO SCH (10:29)
[2018-01-03] MEDS: DULoxetine HCl DR 30 MG CAP PO SCH (10:29)
[2018-01-03] MEDS: FLUTICASONE 100 MCG/VILANTEROL 25 MCG INHALER INH SCH (10:30)
--- NOTE | 2018-01-03 13:35 | HHI.PYPN ---
Subjective Chief Complaint: Depression, SI Remarks Reviewed electronic medical record and discuss case with staff. Patient's follow-up was conducted in his room with nurse present. Patient was found in the hallway ambulated to room without difficulty. Staff reports he has been compliant with his medications. He denies suicidal ideation but claims to be still depressed. He states that he is doing "a little better I suppose". He reports that he talk to the [facility] and they will take him with his dog but they do not have a bed available right now. He has been placed on a waiting last. He reports that he sleeps well and his appetite has been good. He denies suicidal and homicidal ideations, auditory or visual hallucinations. I can elicit no delusional material. Mental Status Examination Appearance: Appropriate Consciousness: Alert Orientation: x4 Motor Activity: Other (no abnormal motor movements noted) Speech: Unremarkable Language: Adequate Fund of Knowledge: Adequate Attention and Concentration: Adequate Memory: Unremarkable Mood: Other (Mood is improving) Affect: Other (More full and reactive today) Thought Process & Associations: Intact, Logical, Goal directed, Linear Thought Content: Appropriate Hallucination Type: None Delusion Type: None Suicidal Ideation: No Suicidal Plan: No Suicidal Intention: No Homicidal Ideation: No Homicidal Plan: No Homicidal Intention: No Results Vitals/IOs Vital Signs Date Time Temp Pulse Resp B/P (MAP) Pulse Ox O2 Delivery O2 Flow Rate FiO2 01/03/18 06:04 97.6 89 18 133/86 (102) 98 Assessment & Plan Problem List: (1) Depression ICD Codes: F32.9 - Major depressive disorder, single episode, unspecified Status: Acute (2) Cocaine abuse ICD Codes: F14.10 - Cocaine abuse, uncomplicated Status: Acute Assessment & Plan Estimated LOS: Continue with treatment plan to stabilize patient on medication. Discharge planning in progress. Justification for Cont. Inpt. Moving this patient to a lower level of care would likely result in decompensation due to his disability. Request HC Surrog/Guard Advoc?: No Problem Qualifiers (1) Depression: Qualified Codes: F33.1 - Major depressive disorder, recurrent, moderate Jodie Hall Jan 03, 2018 13:35
[2018-01-03] MEDS: cloNIDine HCL 0.1 MG TAB PO PRN (16:10)
[2018-01-03 17:45] VITALS: BP 158/98; PULSE 105; RESP 18; TEMP 97.9; O2SAT 96
[2018-01-03 20:52] VITALS: BP 166/110
[2018-01-03] MEDS: MIRTAZAPINE 15 MG TAB PO SCH (20:54)
[2018-01-03 21:45] VITALS: BP 145/97
[2018-01-04 06:07] VITALS: BP 137/88; PULSE 90; RESP 16; TEMP 97.6; O2SAT 97
[2018-01-04] MEDS: DULoxetine HCl DR 30 MG CAP PO SCH (08:57)
[2018-01-04] MEDS: OXcarbazepine 600 MG TAB PO SCH ×4 (08:57→22:01)
[2018-01-04] MEDS: PANTOPRAZOLE SOD 20 MG DELAYED RELEASE TAB PO SCH (08:58)
[2018-01-04] MEDS: RAMIPRIL 5 MG CAP PO SCH (08:58)
[2018-01-04] MEDS: FLUTICASONE 100 MCG/VILANTEROL 25 MCG INHALER INH SCH (09:00)
[2018-01-04] MEDS: TIOTROPIUM BROMIDE 18 MCG INH INH SCH (09:00)
[2018-01-04] MEDS: cloNIDine HCL 0.1 MG TAB PO PRN (13:39)
[2018-01-04] MEDS ORDERED: DOCUSATE SODIUM 100 MG CAP PO PRN (15:30)
--- NOTE | 2018-01-04 16:25 | HHI.PYPN ---
Subjective Chief Complaint: Depression, SI Remarks Reviewed electronic medical record discussed case with staff. Nurse advises patient requesting to have his carvedilol resumed. His diastolic blood pressure has been in the mid to high 90s on the last several blood pressure readings. Follow-up was performed in patient's room with nurse present. Patient states that he feels "all right". States that he slept "so-so". And that his appetite is been good. He denies feeling suicidal, homicidal, or having visual or auditory hallucinations. He is future oriented stating that he is looking forward to speaking with Lauren tomorrow to get more leads on possible group homes. Mental Status Examination Appearance: Appropriate Consciousness: Alert Orientation: x4 Motor Activity: Other (no abnormal motor movements noted) Speech: Unremarkable Language: Adequate Fund of Knowledge: Adequate Attention and Concentration: Adequate Memory: Unremarkable Mood: Other (Mood is improving) Affect: Other (More full and reactive today) Thought Process & Associations: Intact, Logical, Goal directed, Linear Thought Content: Appropriate Hallucination Type: None Delusion Type: None Suicidal Ideation: No Suicidal Plan: No Suicidal Intention: No Homicidal Ideation: No Homicidal Plan: No Homicidal Intention: No Results Vitals/IOs Vital Signs Date Time Temp Pulse Resp B/P (MAP) Pulse Ox O2 Delivery O2 Flow Rate FiO2 01/04/18 06:07 97.6 90 16 137/88 (104) 97 Assessment & Plan Problem List: (1) Depression ICD Codes: F32.9 - Major depressive disorder, single episode, unspecified Status: Acute (2) Cocaine abuse ICD Codes: F14.10 - Cocaine abuse, uncomplicated Status: Acute Assessment & Plan Estimated LOS: We will continue with treatment plan. Nurse to pass on patient' s request to have his carvedilol restarted. Discharge planning in progress. Days Justification for Cont. Inpt. Moving this patient to a lower level of care would likely result in decompensation. Request HC Surrog/Guard Advoc?: No Problem Qualifiers (1) Depression: Qualified Codes: F33.1 - Major depressive disorder, recurrent, moderate Jodie Hall Jan 04, 2018 16:25
[2018-01-04 18:29] VITALS: BP 132/88; PULSE 84; RESP 16; TEMP 97.8; O2SAT 99
[2018-01-04] MEDS: MIRTAZAPINE 15 MG TAB PO SCH (22:00)
[2018-01-05 06:01] VITALS: BP 122/83; PULSE 78; RESP 16; TEMP 97.6; O2SAT 99
[2018-01-05] MEDS: TIOTROPIUM BROMIDE 18 MCG INH INH SCH (08:49)
[2018-01-05] MEDS: FLUTICASONE 100 MCG/VILANTEROL 25 MCG INHALER INH SCH (08:49)
[2018-01-05] MEDS: PANTOPRAZOLE SOD 20 MG DELAYED RELEASE TAB PO SCH (08:50)
[2018-01-05] MEDS: OXcarbazepine 600 MG TAB PO SCH (08:50)
[2018-01-05] MEDS: RAMIPRIL 5 MG CAP PO SCH (08:50)
[2018-01-05] MEDS: DULoxetine HCl DR 30 MG CAP PO SCH (08:50)
[2018-01-05] MEDS ORDERED: REME15TA PO (09:04)
[2018-01-05] MEDS ORDERED: DULO1CAP2 PO (09:04)
[2018-01-05] MEDS ORDERED: OXCA600T PO (09:04)
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
--- NOTE | 2018-01-05 11:50 | HHI.PR ---
Subjective Remarks Reconsulted to evaluate patient. Patient is being discharged by psychiatry today and hospitalist was consulted to clear patient medically for discharge. Patient denies chest pain, dyspnea, palpitations. Has appointment with Cardiology and Pulmonology tomorrow. Objective Vitals Vital Signs Date Time Temp Pulse Resp B/P (MAP) Pulse Ox O2 Delivery O2 Flow Rate FiO2 01/05/18 06:01 97.6 78 16 122/83 (96) 99 01/04/18 18:29 97.8 84 16 132/88 (103) 99 I/O 01/04/18 01/04/18 01/04/18 01/05/18 01/05/18 01/05/18 07:00 15:00 23:00 07:00 15:00 23:00 Intake Total 240 ml Balance 240 ml Intake Oral 240 ml Objective Remarks Gen: NAD Heart: RRR Lungs: CTA bilaterally Psych: Alert, answers questions appropriately. Urinary Catheter: No Vascular Central Line Catheter: No A/P Problem List: (1) Cocaine abuse ICD Code: F14.10 - Cocaine abuse, uncomplicated Status: Acute (2) HTN (hypertension) ICD Code: I10 - Essential (primary) hypertension Status: Chronic Assessment and Plan 1. Depression/anxiety, substance-induced mood disorder: Management per psychiatry. 2. Cocaine abuse: Patient has been counseled. He is well aware of the risks involved and states that he has discussed this with his motor coach operator as well. At this time carvedilol is on hold and patient's blood pressure is controlled. Will defer restarting the carvedilol to the patient's motor coach operator as outpatient. I discussed this with the patient and he will speak with Dr. Thomas at his appointment tomorrow. 3. Hypertension: Hold carvedilol. Continue ramipril, amlodipine. 4. COPD: Stable. Continue Spiriva, Brio Ellipta. Discharge Planning Medically clear for discharge. Carlton Sinha MD Jan 05, 2018 11:49
== END 2018-01-05 12:45 | disposition home or self-care (01) | DRG 885 ==
LOC: NED 19:00 → NEDA 12-30 11:56 → H260 12-30 13:05
PROVIDERS: ADMIT Psychiatry & Neurology Psychiatry; ATTEND Psychiatry & Neurology Psychiatry
DX: F33.1 Major depressive disorder, recurrent, moderate (principal); F14.14 Cocaine abuse with cocaine-induced mood disorder; Z91.14 Patient's other noncompliance with medication regimen; R45.851 Suicidal ideations; I10 Essential (primary) hypertension; J44.9 Chronic obstructive pulmonary disease, unspecified; K21.9 Gastro-esophageal reflux disease without esophagitis; Z87.891 Personal history of nicotine dependence
CPT/HCPCS: 80048; 80053; 80061; 80307; 83036; 83735; 84439; 84443; 85025; 93005; 99285

== ENCOUNTER 2018-03-12 07:58 | Emergency (ER) | payer MEDICARE, MEDICAID ==
[~2018-03-12 07:58] MED LIST changes: +DULO1CAP2 PO; +OXCA600T PO; -TRIL150T PO
[2018-03-12 08:13] VITALS: BP 114/66; PULSE 78; RESP 16; TEMP 97.6; O2SAT 97
[2018-03-12] MEDS ORDERED: PENI500T PO (08:25)
[2018-03-12] MEDS ORDERED: CHLO.12%30 SWISH-SPIT (08:25)
--- NOTE | 2018-03-12 08:29 | PD ---
HPI Chief Complaint: Oral / Dental Pain or Problem Time Seen by Provider: 08:19 Travel History International Travel<30 days: No Contact w/Intl Traveler<30days: No Traveled to known affect area: No History of Present Illness HPI Patient is a 53-year-old male presenting for evaluation of dental pain. Patient states it started last week. The pain is a 6 out of 10, throbbing, worse when he bites down. He reports that his tooth is broken, it has been for at least a year. He states that he cannot get into his dentist until March 31. He denies any fevers or chills, he reports mild edema to his left cheek. He states the swelling is better today than it was yesterday. He denies any purulent drainage or foul taste in his mouth. Symptom onset was gradual, symptoms are mild to moderate nature. Symptoms are constant, no alleviating factors. PFSH Past Medical History Anxiety: Yes Depression: Yes (since 13 years of age) COPD: Yes Gastrointestinal Disorders: Yes GERD: Yes Hepatitis: Yes (HEP C IN REMISSION ) Hypertension: Yes Psychiatric: Yes (Depression, anxiety, substance induced mood disorder, cocaine abuse) Immunizations Current: Yes Radiation Therapy: No Renal Failure: No Seizures: No Sickle Cell Disease: No Sleep Apnea: Yes (C PAP) Thyroid Disease: No Ulcer: No Past Surgical History Abdominal Surgery: No AICD: No Arteriovenous Shunt: No Cardiac Surgery: No Ear Surgery: No Endocrine Surgery: No Eye Surgery: No Genitourinary Surgery: No Gynecologic Surgery: No Insulin Pump: No Joint Replacement: No Oral Surgery: No Thoracic Surgery: No Social History Alcohol Use: Yes (ONCE EVERY 1-2 WEEKS) Tobacco Use: Yes Substance Use: Yes (CRACK) Allergies-Medications (Allergen,Severity, Reaction): Coded Allergies: *MDRO Multi-Drug Resistant Organism (Verified Adverse Reaction, Unknown, ) 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 Reported Meds & Prescriptions Reported Meds & Active Scripts Active Duloxetine DR (Duloxetine HCl) 30 Mg Capdr 90 Mg PO DAILY 5 Days Oxcarbazepine 600 Mg Tab 600 Mg PO QID 5 Days Remeron (Mirtazapine) 15 Mg Tab 15 Mg PO HS 5 Days Spiriva Handihaler (Tiotropium Inh) 18 Mcg Cap 18 Mcg INH DAILY 1 capsule = 18 mcg Ventolin Hfa 18 GM Inh (Albuterol Sulfate) 90 Mcg/Act Aer 2 Puff INH Q4-6H PRN Breo Ellipta Inh (Fluticasone/Vilanterol) 100-25 Mcg/Act Inh 1 Puff INH DAILY Use daily at the same time. Reported Ramipril 5 Mg Cap 5 Mg PO DAILY Carvedilol 25 Mg Tab 25 Mg PO BID Omeprazole 20 Mg Tab 20 Mg PO DAILY Amlodipine (Amlodipine Besylate) 10 Mg Tab 10 Mg PO HS Review of Systems Except as stated in HPI: all other systems reviewed are Neg HENT: Positive: Dental Difficulties Musculoskeletal: Positive: Edema Physical Exam Narrative GENERAL: Well-developed, well-nourished, well-kept male. Presenting in no acute distress. SKIN: Warm and dry. Mild edema to left cheek, no erythema noted. MOUTH: Mucous membranes moist, no lesions, tongue and gums appear normal. Patient has a chipped and broken first molar in the left upper. HEAD: Normocephalic. EYES: No scleral icterus. No injection or drainage. NECK: Supple, trachea midline. No JVD or lymphadenopathy. CARDIOVASCULAR: Regular rate and rhythm without murmurs, gallops, or rubs. RESPIRATORY: Breath sounds equal bilaterally. No accessory muscle use. GASTROINTESTINAL: Abdomen soft, non-tender, nondistended. MUSCULOSKELETAL: No cyanosis, or edema. BACK: Nontender without obvious deformity. No CVA tenderness. Data Data Last Documented VS Vital Signs Date Time Temp Pulse Resp B/P (MAP) Pulse Ox O2 Delivery O2 Flow Rate FiO2 03/12/18 08:22 17 03/12/18 08:13 97.6 78 114/66 (82) 97 [facility] Medical Decision Making Medical Screen Exam Complete: Yes Emergency Medical Condition: Yes Interpretation(s) Vital Signs Date Time Temp Pulse Resp B/P (MAP) Pulse Ox O2 Delivery O2 Flow Rate FiO2 03/12/18 08:22 17 03/12/18 08:13 97.6 78 16 114/66 (82) 97 Differential Diagnosis Dental caries versus dental abscess versus dentalgia versus other Narrative Course Patient is a 53-year-old male that presented to emerge department for evaluation of dental pain. Patient has significant dental disease. No obvious abscess noted on exam. Patient's vital signs are stable. Patient will be started on antibiotics. He has appointment with his dentist on March 31. He was encouraged to keep this appointment, he was further encouraged to see if he can get in sooner to be evaluated. Patient verbalizes understanding of discharge instructions. Patient was advised to return to emergency department if symptoms do not improve with antibiotics. Patient is stable for discharge. Diagnosis Primary Impression: Dental abscess Referrals: Dentist 1 week Patient Instructions: Dental Abscess (ED), General Instructions Additional Instructions: Follow-up with your dentist in 1 week Complete full course of antibiotics as prescribed Return to emergency department for any new or worsening symptoms Med/Other Pt SpecificInfo: Prescription(s) given Scripts Chlorhexidine Gluconate (Mouth) Liq (Chlorhexidine Gluconate (Mouth) Liq) 0.12% Soln 15 ML SWISH-SPIT BID for 7 Days, #210 ML 0 Refills Prov: Jovita Cruz 03/12/18 Penicillin V Potassium (Penicillin V Potassium) 500 Mg Tab 500 MG PO Q8H for Infection for 10 Days, #30 TAB 0 Refills Prov: Jovita Cruz 03/12/18 Disposition: 01 DISCHARGE HOME Condition: Stable Jovita Cruz Mar 12, 2018 08:29
[2018-03-12] MEDS ORDERED: CELE200C PO (08:32)
[2018-03-12] MEDS ORDERED: OXYC-103 PO (08:32)
[2018-03-12] MEDS ORDERED: SOMA350T PO (08:32)
[2018-03-12] MEDS ORDERED: PERC10TA27 PO (08:32)
[2018-03-12] MEDS ORDERED: PREG300 PO (08:32)
== END 2018-03-12 09:02 | disposition home or self-care (01) ==
LOC: NEPD 07:58
DX: K04.7 Periapical abscess without sinus (principal); I10 Essential (primary) hypertension; K21.9 Gastro-esophageal reflux disease without esophagitis; J44.9 Chronic obstructive pulmonary disease, unspecified; G47.30 Sleep apnea, unspecified; F41.8 Other specified anxiety disorders; Z72.0 Tobacco use; Z87.19 Personal history of other diseases of the digestive system
CPT/HCPCS: 99283

== ENCOUNTER 2018-03-13 07:36 | Emergency (ER) | payer MEDICARE, MEDICAID ==
[~2018-03-13] VITALS: Ht 172.7 cm; Wt 103.6 kg
[~2018-03-13 07:36] MED LIST changes: +CELE200C PO; +CHLO.12%30 SWISH-SPIT; +OXYC-103 PO; +PENI500T PO; +PERC10TA27 PO; +PREG300 PO; +SOMA350T PO
[2018-03-13 07:41] VITALS: BP 111/67; PULSE 80; RESP 18; TEMP 98.5; O2SAT 96
[2018-03-13 07:46] VITALS: BP 111/57; PULSE 83; RESP 18; TEMP 98.5; O2SAT 96
[2018-03-13 08:00] VITALS: BP 101/64; PULSE 78; RESP 18; O2SAT 94
--- NOTE | 2018-03-13 08:26 | PD ---
HPI Chief Complaint: OD/ Ingestion Time Seen by Provider: 08:07 Travel History International Travel<30 days: No Contact w/Intl Traveler<30days: No Traveled to known affect area: No History of Present Illness HPI This patient takes Trileptal 4 times a day for anxiety he says. Is been having a lot of extra anxiety issues due to arguing with his landlady. Because of his anxiety this morning he took 3 Trileptal instead of the usual 1. He denies intent to harm or suicidal thought. Shortly thereafter he became dizzy and generalized weakness. No syncope. He stumbled while getting off the bus. He called 911 to get evaluated. No headache or chest pain. Patient also takes 3 antihypertensives. He took them today. Symptom severity is moderate. No alleviating factors. Symptoms exacerbated by extra medication. Duration 2 hours PFSH Past Medical History Asthma: Yes (chronic bronchitis ) Anxiety: Yes Depression: Yes (since 13 years of age) Cardiovascular Problems: Yes (HTN) COPD: Yes Diminished Hearing: No Gastrointestinal Disorders: Yes GERD: Yes Hepatitis: Yes (HEP C IN REMISSION ) Hypertension: Yes Psychiatric: Yes (Depression, anxiety, substance induced mood disorder, cocaine abuse) Respiratory: Yes (COPD/EMPHYSEMA ) Immunizations Current: Yes Radiation Therapy: No Renal Failure: No Seizures: No Sickle Cell Disease: No Sleep Apnea: Yes (C PAP) Thyroid Disease: No Ulcer: No Past Surgical History Surgical History: No Previous Surgery Abdominal Surgery: No AICD: No Arteriovenous Shunt: No Cardiac Surgery: No Ear Surgery: No Endocrine Surgery: No Eye Surgery: No Genitourinary Surgery: No Gynecologic Surgery: No Insulin Pump: No Joint Replacement: No Oral Surgery: No Thoracic Surgery: No Social History Alcohol Use: No (former) Tobacco Use: No Substance Use: No Allergies-Medications (Allergen,Severity, Reaction): Coded Allergies: *MDRO Multi-Drug Resistant Organism (Verified Adverse Reaction, Unknown, ) 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 Reported Meds & Prescriptions Reported Meds & Active Scripts Active Chlorhexidine Gluconate (Mouth) Liq (Chlorhexidine Gluconate) 0.12% Soln 15 Ml SWISH-SPIT BID 7 Days Penicillin V Potassium 500 Mg Tab 500 Mg PO Q8H [address] (Duloxetine HCl) 30 Mg Capdr 90 Mg PO DAILY 5 Days Oxcarbazepine 600 Mg Tab 600 Mg PO QID 5 Days Remeron (Mirtazapine) 15 Mg Tab 15 Mg PO HS 5 Days Spiriva Handihaler (Tiotropium Inh) 18 Mcg Cap 18 Mcg INH DAILY 1 capsule = 18 mcg Ventolin Hfa 18 GM Inh (Albuterol Sulfate) 90 Mcg/Act Aer 2 Puff INH Q4-6H PRN Breo Ellipta Inh (Fluticasone/Vilanterol) 100-25 Mcg/Act Inh 1 Puff INH DAILY Use daily at the same time. Reported Celebrex (Celecoxib) 200 Mg Cap 200 Mg PO BID Lyrica (Pregabalin) 300 Mg Cap 300 Mg PO BID Soma (Carisoprodol) 350 Mg Tab 350 Mg PO TID PRN Percocet (Oxycodone-Acetaminophen) 10-325 mg Tab 1 Tab PO Q12HR PRN Oxycontin (Oxycodone HCl) 10 Mg Tab 15 Mg PO Q12HR Ramipril 5 Mg Cap 5 Mg PO DAILY Carvedilol 25 Mg Tab 25 Mg PO BID Omeprazole 20 Mg Tab 20 Mg PO DAILY Amlodipine (Amlodipine Besylate) 10 Mg Tab 10 Mg PO HS Review of Systems General / Constitutional: No: Fever Eyes: No: Visual changes HENT: Positive: Lightheadedness, No: Headaches Cardiovascular: No: Chest Pain or Discomfort Respiratory: No: Shortness of Breath Gastrointestinal: No: Abdominal Pain Genitourinary: No: Dysuria Musculoskeletal: Positive: Weakness, No: Pain Skin: No Rash Neurologic: Positive: Weakness, Dizziness Psychiatric: Positive: Anxiety, Depression Endocrine: No: Polydipsia Hematologic/Lymphatic: No: Easy Bruising Physical Exam Narrative GENERAL: Well-nourished, well-developed patient in no apparent distress. SKIN: Focused skin assessment reveals no rash and nodules. Skin is Warm and dry. HEAD: Atraumatic. Normocephalic. EYES: Pupils equal and round. No scleral icterus. No injection or drainage. ENT: No nasal bleeding or discharge. Mucous membranes pink and moist. NECK: Trachea midline. No JVD. CARDIOVASCULAR: Regular rate and rhythm. No murmur appreciated. RESPIRATORY: No accessory muscle use. Clear to auscultation. Breath sounds equal bilaterally. GASTROINTESTINAL: Abdomen soft, non-tender, nondistended. Hepatic and splenic margins not palpable. MUSCULOSKELETAL: No obvious deformities. No clubbing. No cyanosis. No edema. NEUROLOGICAL: Awake but a bit drowsy. No obvious cranial nerve deficits. Motor grossly within normal limits. Normal speech. PSYCHIATRIC: Appropriate mood and affect; he does not seem anxious. Insight and judgment reduced . Data Data Last Documented VS Vital Signs Date Time Temp Pulse Resp B/P (MAP) Pulse Ox O2 Delivery O2 Flow Rate FiO2 03/13/18 09:30 80 18 130/79 (96) 96 Room Air 03/13/18 07:46 98.5 Orders Orders Iv Access Insert/Monitor (03/13/18 08:16) Complete Blood Count With Diff (03/13/18 08:16) Basic Metabolic Panel (Bmp) (03/13/18 08:16) Sodium Chlor 0.9% 1000 Ml Inj (Ns 1000 M (03/13/18 08:30) Labs Laboratory Tests Test 03/13/18 08:20 White Blood Count 7.3 TH/MM3 Red Blood Count 4.72 MIL/MM3 Hemoglobin 14.1 GM/DL Hematocrit 40.3 % Mean Corpuscular Volume 85.5 FL Mean Corpuscular Hemoglobin 29.9 PG Mean Corpuscular Hemoglobin Concent 35.0 % Red Cell Distribution Width 13.6 % Platelet Count 248 TH/MM3 Mean Platelet Volume 7.5 FL Neutrophils (%) (Auto) 55.7 % Lymphocytes (%) (Auto) 22.8 % Monocytes (%) (Auto) 9.2 % Eosinophils (%) (Auto) 11.4 % Basophils (%) (Auto) 0.9 % Neutrophils # (Auto) 4.0 TH/MM3 Lymphocytes # (Auto) 1.7 TH/MM3 Monocytes # (Auto) 0.7 TH/MM3 Eosinophils # (Auto) 0.8 TH/MM3 Basophils # (Auto) 0.1 TH/MM3 CBC Comment DIFF FINAL Differential Comment Blood Urea Nitrogen 21 MG/DL Creatinine 0.95 MG/DL Random Glucose 107 MG/DL Calcium Level 8.8 MG/DL Sodium Level 138 MEQ/L Potassium Level 4.0 MEQ/L Chloride Level 105 MEQ/L Carbon Dioxide Level 25.5 MEQ/L Anion Gap 8 MEQ/L Estimat Glomerular Filtration Rate 82 ML/MIN MDM Medical Decision Making Medical Screen Exam Complete: Yes Emergency Medical Condition: Yes Medical Record Reviewed: Yes Differential Diagnosis Accidental overdose, anxiety, medication abuse Narrative Course I have reviewed the patient's electronic medical record. He has been here for overdose in the past treated with Narcan Patient denies taking any of his narcotics today IV placed and labs sent Gave him 1 L normal saline IV bolus Going to observe him for a while I think he just needs to metabolize off the extra medication. He was not trying to harm himself. I do not see urgent need for psychiatric evaluation. It was just poor judgment. CBC and metabolic profile are normal Patient is feeling fine on recheck. He wants to go home. I ambulated him in the department and he was steady and had no symptoms Diagnosis Primary Impression: Accidental overdose Qualified Codes: T50.901A - Poisoning by unspecified drugs, medicaments and biological substances, accidental (unintentional), initial encounter Additional Impressions: Lethargy Lightheadedness Additional Instructions: The patient was advised to follow up with their physician and return if they worsen. Med/Other Pt SpecificInfo: Other Disposition: 01 DISCHARGE HOME Condition: Stable Carlton Arriola MD Mar 13, 2018 08:26
[2018-03-13] MEDS ORDERED: SODIUM CHLOR 0.9% 1000 ML INJ 1,000 ML IV ONE (08:30)
[2018-03-13 08:34] LABS: BASOPHIL # 0.1 TH/MM3 (0-0.2); BASOPHIL % 0.9 % (0.0-2.0); EOSINOPHIL # 0.8 TH/MM3 (0-0.4); EOSINOPHIL % 11.4 % (0.0-4.0); HEMATOCRIT 40.3 % (39.0-51.0); HEMOGLOBIN 14.1 GM/DL (13.0-17.0); LYMPH % 22.8 % (9.0-44.0); LYMPHOCYTE # 1.7 TH/MM3 (1.0-4.8); MEAN CELL VOLUME 85.5 FL (80.0-100.0); MEAN CORPUSCULAR HEMOGLOBIN 29.9 PG (27.0-34.0); MEAN PLATELET VOLUME 7.5 FL (7.0-11.0); MONO % 9.2 % (0.0-8.0); MONOCYTE # 0.7 TH/MM3 (0-0.9); NEUT % 55.7 % (16.0-70.0); PLATELET COUNT 248 TH/MM3 (150-450); RED BLOOD COUNT 4.72 MIL/MM3 (4.50-5.90); RED CELL DISTRIBUTION WIDTH 13.6 % (11.6-17.2); WHITE BLOOD COUNT 7.3 TH/MM3 (4.0-11.0)
[2018-03-13 08:50] LABS: BICARBONATE 25.5 MEQ/L (21.0-32.0); CALCIUM 8.8 MG/DL (8.5-10.1); CREATININE 0.95 MG/DL (0.60-1.30)
[2018-03-13 09:30] VITALS: BP 130/79; PULSE 80; RESP 18; O2SAT 96
== END 2018-03-13 10:23 | disposition home or self-care (01) ==
LOC: NEPE 07:36
DX: T42.1X1A Poisoning by iminostilbenes, accidental (unintentional), initial encounter (principal); R53.1 Weakness; R42 Dizziness and giddiness; I10 Essential (primary) hypertension; K21.9 Gastro-esophageal reflux disease without esophagitis; J44.9 Chronic obstructive pulmonary disease, unspecified; F41.9 Anxiety disorder, unspecified
CPT/HCPCS: 80048; 85025; 96360; 96361; 99284; J7030